=== PATIENT | female | born 1935 | race Caucasian/White ===

== ENCOUNTER 2017-02-28 23:37 | Inpatient (IN) | payer MEDICARE, MEDICAID ==
[2017-02-28] MEDS ORDERED: Albuterol-Ipratrop 3 mg / 0.5 (3 ml) UD ONE (23:45)
[2017-02-28] MEDS ORDERED: Nitroglycerin 2% Ointment Foilpak UD TOP ONE (23:49)
--- NOTE | 2017-02-28 23:50 | ED PDOC ---
Arrival/HPI - General Time Seen by Provider: 02/28/17 23:42 Historian: Patient, Family - History of Present Illness Narrative History of Present Illness (Text): 02/28/17 23:46 Feng Cormier is a 81 year old female, whose past medical history includes hypertension, non-insulin dependent diabetes, migraine and arthritis, presents to the emergency department complaining of shortness of breath for an hour. As per family, patient has been feeling shortness of breath since today worsening the past hour. Patient states associated mild anterior cardiac discomfort. Patient denies any abdominal pain, fever, nausea, vomiting, diarrhea, trauma or any other complaints. Time/Duration: 1 hour Symptom Onset: Sudden Symptom Course: Worsening Activities at Onset: Light Context: Home Past Medical History - Provider Review Nursing Documentation Reviewed: Yes - Cardiac Hx NE: Yes Hx Hypertension: Yes Family/Social History - Physician Review Nursing Documentation Reviewed: Yes Family/Social History: Unknown Family HX Allergies/Home Meds Allergies/Adverse Reactions: Allergies No Known Allergies Allergy (Verified 02/28/17 23:48) Home Medications: Home Meds Medication Instructions Recorded Confirmed Aspirin [Ecotrin] 81 mg PO DAILY 10/13/16 10/13/16 Bisoprolol Fumarate 10 mg PO DAILY 10/13/16 10/13/16 Clopidogrel [Plavix] 75 mg PO DAILY 10/13/16 10/13/16 Isosorbide Mononitrate [Isosorbide 30 mg PO DAILY 10/13/16 10/13/16 Mononitrate ER] Linagliptin [Tradjenta] 5 mg PO DAILY 10/13/16 10/13/16 Metformin HCl [Fortamet] 500 mg PO DAILY 10/13/16 10/13/16 Mv,Min10/Folic Acid/D3/Ala/Lut 1 tab PO DAILY 10/13/16 10/13/16 [Strovite One Caplet] Simvastatin 20 mg PO DAILY 10/13/16 10/13/16 Review of Systems - Physician Review All systems were reviewed & negative as marked: Yes - Review of Systems Constitutional: Normal. absent: Fevers Eyes: Normal ENT: Normal Respiratory: SOB Cardiovascular: Chest Pain (mild anterior chest discomfort ) Gastrointestinal: Normal. absent: Abdominal Pain, Diarrhea, Nausea, Vomiting Genitourinary Female: Normal Musculoskeletal: Normal Skin: Normal Neurological: Headache (PMHx: migraine ) Endocrine: Normal Hemo/Lymphatic: Normal Psychiatric: Normal Physical Exam Vital Signs Reviewed: Yes Vital Signs Temp Pulse Resp BP Pulse Ox 03/01/17 01:38 84 23 157/89 H 100 03/01/17 01:11 82 119/107 H 03/01/17 00:35 191/108 H 03/01/17 00:32 191/108 H 02/28/17 23:50 20 02/28/17 23:48 97.6 F 93 H 28 H 224/107 H 94 L Temperature: Afebrile Blood Pressure: Hypertensive Pulse: Tachycardic Respiratory Rate: Tachypneic Appearance: Positive for: Non-Toxic, Other (pale ) Pain Distress: None Mental Status: Positive for: Alert and Oriented X 3 - Systems Exam Head: Present: Atraumatic, Normocephalic Pupils: Present: PERRL Extroacular Muscles: Present: EOMI Conjunctiva: Present: Normal Mouth: Present: Moist Mucous Membranes Neck: Present: Normal Range of Motion, JVD Respiratory/Chest: Present: Respiratory Distress, Accessory Muscle Use, Rales ( at both bases ), Tachypneic Cardiovascular: Present: Regular Rate and Rhythm, Normal S1, S2. No: Murmurs Abdomen: Present: Normal Bowel Sounds. No: Tenderness, Distention, Peritoneal Signs Back: Present: Normal Inspection Upper Extremity: Present: Normal Inspection. No: Cyanosis Lower Extremity: Present: Normal Inspection, Edema (minimal peripheral edema ) Neurological: Present: GCS=15, CN II-XII Intact, Other (Speaking in short sentences secondary to shortness of breath) Skin: Present: Warm, Diaphoretic, Pale. No: Rashes, Normal Color Psychiatric: Present: Alert, Oriented x 3, Normal Insight, Normal Concentration Medical Decision Making ED Course and Treatment: 03/01/17 23:46 Impression: 81 year old female presents to the Emergency department for shortness of breath. Differential Diagnosis included but are not limited to: pulmonary edema Plan: -- BVG -- EKG -- Chest X-ray -- Labs -- Aspirin -- Lasix -- Nitroglycerin -- Reassess and disposition Progress Notes: 03/01/17 01:50 Upon reassessment, patient has improved significantly. Shortness of breath resolved. Patient appears to be comfortable. - Lab Interpretations Lab Results: 03/01/17 00:09 03/01/17 00:09 Lab Results 03/01/17 00:38: pCO2 44, pO2 287.0 H, HCO3 26.6, ABG pH 7.39, ABG Total CO2 28.0 , ABG O2 Saturation 99.1 H, ABG O2 Content 18.0, ABG Base Excess 1.3, ABG Hemoglobin 12.6, ABG Carboxyhemoglobin 1.1, POC ABG HHb (Measured) 0.9, ABG Methemoglobin 0.7, ABG O2 Capacity 18.2, Hgb O2 Saturation 97.4, FiO2 100.0 03/01/17 00:09: Sodium 130 L, Potassium 4.3, Chloride 91 L, Carbon Dioxide 25, Anion Gap 18, BUN 28 H, Creatinine 1.4 H, Est GFR ( Amer) 44, Est GFR ( Non-Af Amer) 36, Random Glucose 239 H, Calcium 9.3, Total Bilirubin 0.4, AST 54 H, ALT 48, Alkaline Phosphatase 51, Lactate Dehydrogenase 625, Total Creatine Kinase 72, Troponin I < 0.01, NT-Pro-B Natriuret Pep 1140 H, Total Protein 7.9, Albumin 4.6, Globulin 3.3, Albumin/Globulin Ratio 1.4 03/01/17 00:09: PT 10.3, INR 0.95, APTT 35.5 03/01/17 00:09: WBC 13.1 H, RBC 3.75, Hgb 12.0, Hct 35.2 L, MCV 93.9, MCH 32.0, MCHC 34.1, RDW 12.5, Plt Count 309, MPV 9.1, Gran % 88.1 H, Lymph % (Auto) 7.6 L , [place] % (Auto) 3.7, Eos % (Auto) 0.5 L, Baso % (Auto) 0.1, Gran # 11.56 H, Lymph # 1.0 L, [place] # 0.5, Eos # 0.1, Baso # 0.01 - RAD Interpretation Radiology Orders: 02/28/17 23:53 CHEST PORTABLE [RAD] Stat - Medication Orders Current Medication Orders: Aspirin (Ecotrin) 81 mg PO DAILY [facility] Atorvastatin Calcium (Lipitor) 10 mg PO DIN CAT Clopidogrel Bisulfate (Plavix) 75 mg PO DAILY [facility] Furosemide (Lasix) 40 mg IVP DAILY [facility] Hydralazine HCl (Apresoline) 10 mg IVP Q4 [facility] Insulin Human Regular (Humulin R Low) 0 units SC ACHS CAT PRN Reason: Protocol Isosorbide Mononitrate (Imdur Er) 30 mg PO DAILY [facility] Non-Formulary Medication (Bisoprolol Fumarate [Bisoprolol Fumarate]) 10 mg PO DAILY [facility] Discontinued Medications Aspirin (Ecotrin) 325 mg PO STAT STA Stop: 02/28/17 23:53 Last Admin: 03/01/17 00:39 Dose: 325 mg Furosemide (Lasix) 60 mg IVP STAT STA Stop: 02/28/17 23:53 Last Admin: 03/01/17 00:35 Dose: 60 mg MAR Blood Pressure Document 03/01/17 00:35 [facility] (Rec: 03/01/17 00:[id number]) Blood Pressure Blood Pressure (100/60-150/90) 191/108 IVP Administration Document 03/01/17 00:35 [facility] (Rec: 03/01/17 00:[id number]) Charges for Administration # of IVP Administrations 1 Labetalol HCl (Trandate) 10 mg IV STAT STA Stop: 03/01/17 00:34 Last Admin: 03/01/17 01:11 Dose: 10 mg eMAR Start Stop Document 03/01/17 01:11 [facility] (Rec: 03/01/17 01:[id number]) Intravenous Solution Start Date 03/01/17 Start Time 01:12 End Date 03/01/17 MAR Pulse and Blood Pressure Document 03/01/17 01:11 [facility] (Rec: 03/01/17 01:[id number]) Pulse Pulse Rate (60-90) 82 Blood Pressure Blood Pressure (100/60-150/90) 119/107 Nitroglycerin (Nitrostat Sl Tab) 0.4 mg SL STAT STA Stop: 02/28/17 23:53 Last Admin: 03/01/17 00:36 Dose: 0.4 mg Nitroglycerin (Nitro-Bid 2% Oint) 2 ea TOP STAT STA Stop: 02/28/17 23:55 Last Admin: 03/01/17 00:36 Dose: 2 ea - Scribe Statement The provider has reviewed the documentation as recorded by the Taniibe Essence Ortiz. All medical record entries made by the Taniibdave were at my direction and personally dictated by me. I have reviewed the chart and agree that the record accurately reflects my personal performance of the history, physical exam, medical decision making, and the department course for this patient. I have also personally directed, reviewed, and agree with the discharge instructions and disposition. Disposition/Present on Arrival - Present on Arrival Any Indicators Present on Arrival: No - Disposition Have Diagnosis and Disposition been Completed?: Yes Diagnosis: Pulmonary edema, Hypertension Disposition: HOSPITALIZED Disposition Time: 02:40 Patient Plan: Telemetry Condition: SERIOUS
[2017-02-28] MEDS ORDERED: Aspirin 325 mg EC Tablets PO STA (23:52)
[2017-02-28] MEDS ORDERED: Nitroglycerin 2% Ointment Foilpak UD TOP STA (23:54)
[2017-03-01 00:28] LABS: BASO # 0.01 K/mm3 (0.0-2.0); BASO % 0.1 % (0.0-3.0); EOS # 0.1 (0.0-0.7); EOS % 0.5 % (1.5-5.0); GRAN # 11.56 (1.4-6.5); GRAN % 88.1 % (50.0-68.0); LYMPH % 7.6 % (22.0-35.0); MEAN CELL VOLUME 93.9 fl (80.0-105.0); MEAN CORPUSCULAR HGB CONC 34.1 g/dl (31.0-37.0); MEAN PLATELET VOLUME 9.1 fl (7.0-11.0); MONO # 0.5 (0.1-0.6); MONO % 3.7 % (1.0-6.0); RBC 3.75 10^6/uL (3.5-6.1); RED CELL DISTRIBUTION WIDTH 12.5 % (11.5-14.5); WHITE BLOOD COUNT 13.1 10^3/ul (4.5-11.0)
[2017-03-01] MEDS ORDERED: Labetalol 5 mg/ml Inj 20ML IV STA (00:33)
[2017-03-01 00:43] LABS: ARTERIAL BLOOD GAS HCO3 26.6 mmol/L (21-28); ARTERIAL BLOOD GAS HEMOGLOBIN 12.6 g/dL (11.7-17.4); ARTERIAL BLOOD GAS O2 CAPACITY 18.2 mL/dl (16-24); ARTERIAL BLOOD GAS O2 SAT 99.1 % (95-98); ARTERIAL BLOOD GAS PCO2 44 mm/Hg (35-45); ARTERIAL BLOOD GAS PH 7.39 (7.35-7.45)
[2017-03-01 00:43] LABS: INR 0.95 (0.93-1.08); PROTHROMBIN TIME 10.3 SECONDS (9.4-12.5)
[2017-03-01 00:44] LABS: PARTIAL THROMBOPLASTIN TIME 35.5 Seconds (25.1-36.5)
[2017-03-01 00:49] LABS: ALB/GLOB RATIO 1.4 (1.1-1.8); ALBUMIN 4.6 g/dL (3.0-4.8); ALT/SGPT 48 U/L (7-56); AST/SGOT 54 U/L (14-36); BLOOD UREA NITROGEN 28 mg/dL (7-21); CALCIUM 9.3 mg/dL (8.4-10.5); GFR AFRICAN-AMERICAN 44; GFR NON-AFRICAN AMERICAN 36
[2017-03-01 00:50] LABS: B-TYPE NATRIURETIC PEPTIDE 1140 pg/mL (0-450); TROPONIN I < 0.01 ng/mL
--- NOTE | 2017-03-01 02:43 | CP.PCM.HP ---
<Samson Rodriguez - Last Filed: 03/01/17 05:10> History of Present Illness - History of Present Illness History of Present Illness: Mrs. Cormier is a 81 year old female with a past medical history significant for non-insulin dependent DM2, CAD s/p RCA stent placement in 07/13, HTN, HLD and CKD who presents with a chief complaint of progressive SOB and non-productive cough since approximately 16 hours [employer]. Patient speaks slovenian only and is accompanied by her son who provides translation. Patient reports that yesterday (02/28) around 1100, she was at her adult day care center when she began to experience a nonproductive cough and mild SOB while at rest. She reports that the SOB progressed throughout the course of the day with no alleviating or aggravating factors noted. She does endorse that several of her friends have had flu-like symptoms at her day care but denies any fever, chills, chest pain, palpitations, syncope, leg edema, sputum, wheezing, pleurisy, hemoptysis or any recent travel/trauma/hospitalizations. She also denies any headache, changes in her vision, dysphagia, abdominal pain, N/V, diarrhea, constipation, burning/ pain with urination, any new rashes, or any numbness/tingling/weakness of any extremity. PMH: As stated above PSH: RCA Stent placement (07/13) Family History: Denies any history of HTN, HLD, CAD, MT's or any cancers Social History: Endorses social alcohol use, denies any tobacco or illicit drug use, lives at home with her son, attends adult day care, speaks slovenian only Allergies: NKDA Home Medications: As per MAR Present on Admission - Present on Admission Any Indicators Present on Admission: No Review of Systems - Review of Systems Review of Systems: As per HPI Past Patient History - Infectious Disease Hx of Infectious Diseases: None - Tetanus Immunizations Tetanus Immunization: Unknown - Past Social History Smoking Status: Never Smoked - CARDIAC Hx Heart Attack: Yes Hx Hypertension: Yes - PSYCHIATRIC Hx Substance Use: No Meds Allergies/Adverse Reactions: Allergies Allergy/AdvReac Type Severity Reaction Status Date / Time No Known Allergies Allergy Verified 02/28/17 23:48 Physical Exam - Constitutional Appears: Non-toxic, No Acute Distress - Head Exam Head Exam: ATRAUMATIC, NORMAL INSPECTION, NORMOCEPHALIC - Eye Exam Eye Exam: EOMI, Normal appearance, PERRL Pupil Exam: NORMAL ACCOMODATION, PERRL - ENT Exam ENT Exam: Mucous Membranes Moist, Normal Exam - Neck Exam Neck exam: Positive for: Full Rom, Normal Inspection. Negative for: Lymphadenopathy, Meningismus, Tenderness, Thyromegaly - Respiratory Exam Respiratory Exam: Decreased Breath Sounds (Lung bases bilaterally), NORMAL BREATHING PATTERN. absent: Accessory Muscle Use, Chest Wall Tenderness, Clear to Auscultation Bilateral, Prolonged Expiratory Phase, Rales, Rhonchi, Wheezes, Respiratory Distress, Stridor - Cardiovascular Exam Cardiovascular Exam: REGULAR RHYTHM, RRR, +S1, +S2. absent: Bradycardia, Tachycardia, Clicks, Diastolic murmur, Gallop, Irregular Rhythm, JVD, Rubs, +S4 , Systolic Murmur - GI/Abdominal Exam GI & Abdominal Exam: Normal Bowel Sounds, Soft. absent: Bruit, Diminished Bowel Sounds, Distended, Firm, Guarding, Hernia, Hyperactive Bowel Sounds, Hypoactive Bowel Sounds, Mass, Organomegaly, Pulsatile Mass, Rebound, Rigid, Tenderness - Extremities Exam Extremities exam: Positive for: full ROM, normal capillary refill, normal inspection, pedal pulses present. Negative for: calf tenderness, joint swelling , pedal edema, tenderness - Back Exam Back exam: FULL ROM, NORMAL INSPECTION. absent: CVA tenderness (L), CVA tenderness (R), muscle spasm, paraspinal tenderness, rash noted, tenderness, vertebral tenderness - Neurological Exam Neurological exam: Alert, CN II-XII Intact, Oriented x3 - Psychiatric Exam Psychiatric exam: Normal Affect, Normal Mood - Skin Skin Exam: Dry, Intact, Normal Color, Warm Results - Vital Signs Recent Vital Signs: Last Vital Signs Temp 97.6 F 02/28/17 23:48 Pulse 84 03/01/17 01:38 Resp 23 03/01/17 01:38 BP 157/89 H 03/01/17 01:38 Pulse Ox 100 03/01/17 01:38 - Labs Result Diagrams: 03/01/17 00:09 03/01/17 00:09 Labs: Laboratory Results - last 24 hr 03/01/17 03/01/17 03/01/17 00:09 00:09 00:09 WBC 13.1 H RBC 3.75 Hgb 12.0 Hct 35.2 L MCV 93.9 MCH 32.0 MCHC 34.1 RDW 12.5 Plt Count 309 MPV 9.1 Gran % 88.1 H Lymph % (Auto) 7.6 L [place] % (Auto) 3.7 Eos % (Auto) 0.5 L Baso % (Auto) 0.1 Gran # 11.56 H Lymph # 1.0 L [place] # 0.5 Eos # 0.1 Baso # 0.01 PT 10.3 INR 0.95 APTT 35.5 pCO2 pO2 HCO3 ABG pH ABG Total CO2 ABG O2 Saturation ABG O2 Content ABG Base Excess ABG Hemoglobin ABG Carboxyhemoglobin POC ABG HHb (Measured) ABG Methemoglobin ABG O2 Capacity Hgb O2 Saturation FiO2 Sodium 130 L Potassium 4.3 Chloride 91 L Carbon Dioxide 25 Anion Gap 18 BUN 28 H Creatinine 1.4 H Est GFR ( Amer) 44 Est GFR (Non-Af Amer) 36 Random Glucose 239 H Calcium 9.3 Total Bilirubin 0.4 AST 54 H ALT 48 Alkaline Phosphatase 51 Lactate Dehydrogenase 625 Total Creatine Kinase 72 Troponin I < 0.01 NT-Pro-B Natriuret Pep 1140 H Total Protein 7.9 Albumin 4.6 Globulin 3.3 Albumin/Globulin Ratio 1.4 03/01/17 00:38 WBC RBC Hgb Hct MCV MCH MCHC RDW Plt Count MPV Gran % Lymph % (Auto) [place] % (Auto) Eos % (Auto) Baso % (Auto) Gran # Lymph # [place] # Eos # Baso # PT INR APTT pCO2 44 pO2 287.0 H HCO3 26.6 ABG pH 7.39 ABG Total CO2 28.0 ABG O2 Saturation 99.1 H ABG O2 Content 18.0 ABG Base Excess 1.3 ABG Hemoglobin 12.6 ABG Carboxyhemoglobin 1.1 POC ABG HHb (Measured) 0.9 ABG Methemoglobin 0.7 ABG O2 Capacity 18.2 Hgb O2 Saturation 97.4 FiO2 100.0 Sodium Potassium Chloride Carbon Dioxide Anion Gap BUN Creatinine Est GFR ( Amer) Est GFR (Non-Af Amer) Random Glucose Calcium Total Bilirubin AST ALT Alkaline Phosphatase Lactate Dehydrogenase Total Creatine Kinase Troponin I NT-Pro-B Natriuret Pep Total Protein Albumin Globulin Albumin/Globulin Ratio Assessment & Plan - Assessment and Plan (Free Text) Assessment: 81 year old female with a past medical history significant for non-insulin dependent DM2, CAD s/p RCA stent placement in 07/13, HTN, HLD and CKD who presents with a chief complaint of progressive SOB and non-productive cough since approximately 16 hours [employer]. Plan: 1. Dyspnea -Chest X-Ray showing findings consistent with pulmonary edema with radiologist interpretation pending -Echo and Nuclear Stress Test from 10/13 showed no abnormal findings with an LVEF of 67.9% -IV Lasix 40mg IVP Daily -Serial Cardiac Iso's Q6H -Daily CBC -Rapid Influenza -Blood/Urine Cultures pending -Strict I/O's -Echo pending -Cardiology Consult (Saad) 2. Hypertension -Hydralazine 10mg IVP Q4H PRN for SBP >180 -Continue home Bisoprolol 3. DM2 -SSI and Accuchecks ACHS -Heart Healthy Carbohydrate Consistent Diet 4. History of CAD s/p RCA stent -Continue home ASA, Nitro and Plavix 5. History of HLD -Continue home Lipitor 6. History of CKD -Son reporting patient has baseline creatinine of 1.8 and GFR of 39 -Daily CMP's to monitor GI Prophylaxis: Protonix DVT Prophylaxis: SCD's Patient seen and case discussed with attending, Dr. Marcelino. - Date & Time Date: 03/01/17 Time: 03:15 Decision To Admit - . Bed Request Type: Telemetry <Suraj Marcelino Q - Last Filed: 03/01/17 06:25> Results - Vital Signs Recent Vital Signs: Last Vital Signs Temp 97.6 F 02/28/17 23:48 Pulse 76 03/01/17 03:50 Resp 21 03/01/17 03:50 BP 146/71 03/01/17 03:50 Pulse Ox 99 03/01/17 03:50 - Labs Result Diagrams: 03/01/17 05:30 03/01/17 00:09 Attending/Attestation - Attestation I have personally seen and examined this patient.: Yes I have fully participated in the care of the patient.: Yes I have reviewed all pertinent clinical information: Yes Notes (Text): 03/01/17 06:20 I agree with the above mentioned note and exam with the addition/exception of the followin81 y/o female with a PMHx Htn, CAD s/p PCI to the RCA in 04/2016, Arthritis, ? Gout, DM2 presents to the ED with a 1 day history of shortness of breath accompanied by her son. Son reports that his mother has been having cold-like symptoms for a few days, however yesterday she experienced a bout of coughing that seemed to get worse without any significant improvement eventually causing the patient to become visibly short of breath so be brought her in to the ED. Patient was treated with diuretics in the ED as well as oxygen via nasal cannula with substantial improvement to her clinical condition. At the time of my examination, she did not complain of any respiratory distress and appeared comfortable. She did however offer complaints of intermittent left arm numbness and tingling as well as retrosternal chest tightness without alleviating or aggravating factors. Consideration will be given for ischemic heart disease, flash pulmonary edema secondary to hypertensive urgency as well as possible CHF that may have developed over the last 6 months since her echocardiogram at that time did not show any significant heart failure.
[2017-03-01 03:38] LABS: PH,URINE 6.5 (4.7-8.0); URINE BILIRUBIN NEGATIVE (NEGATIVE); URINE BLOOD TRACE-INTACT (NEGATIVE); URINE GLUCOSE (UA) NEGATIVE (NEGATIVE); URINE LEUKOCYTE ESTERASE NEGATIVE Leu/uL (NEGATIVE); URINE NITRATE NEGATIVE (NEGATIVE); URINE PROTEIN 100 mg/dL (<30 mg/dL); URINE UROBILINOGEN 0.2 E.U./dL (<1 E.U./dL)
[2017-03-01 03:54] LABS: URINE APPEARANCE CLEAR (CLEAR); URINE COLOR YELLOW (YELLOW)
[2017-03-01 03:59] LABS: URINE EPITHELIAL CELLS 0 - 2 /hpf (0-5); URINE RBC 0 - 2 /hpf (0-2); URINE WBC 0 - 2 /hpf (0-6)
[2017-03-01 06:04] LABS: BASO # 0.02 K/mm3 (0.0-2.0); BASO % 0.2 % (0.0-3.0); EOS % 0.1 % (1.5-5.0); GRAN # 8.67 (1.4-6.5); GRAN % 89.4 % (50.0-68.0); HEMOGLOBIN 12.2 g/dL (12.0-16.0); LYMPH # 0.6 (1.2-3.4); LYMPH % 6.3 % (22.0-35.0); MEAN CELL VOLUME 93.5 fl (80.0-105.0); MEAN CORPUSCULAR HEMOGLOBIN 31.7 pg (25.0-35.0); MEAN CORPUSCULAR HGB CONC 33.9 g/dl (31.0-37.0); MEAN PLATELET VOLUME 9.3 fl (7.0-11.0); MONO # 0.4 (0.1-0.6); RBC 3.85 10^6/uL (3.5-6.1); RED CELL DISTRIBUTION WIDTH 12.6 % (11.5-14.5); WHITE BLOOD COUNT 9.7 10^3/ul (4.5-11.0)
[2017-03-01 06:23] LABS: ALB/GLOB RATIO 1.7 (1.1-1.8); ALBUMIN 4.8 g/dL (3.0-4.8); CALCIUM 9.8 mg/dL (8.4-10.5)
[2017-03-01 06:34] LABS: TROPONIN I 0.09 ng/mL
[2017-03-01] MEDS: Pantoprazole 40 mg EC Tab PO SCH (07:06)
--- NOTE | 2017-03-01 07:27 | RAD ---
HISTORY: sob COMPARISON: No prior. FINDINGS: LUNGS: Linear atelectasis or fibrosis in the inferior right lung zone. No alveolitis bilaterally. PLEURA: No significant pleural effusion identified, no pneumothorax apparent. CARDIOVASCULAR: Cardiomegaly appears [id number] in severity with mild hilar vascular prominence and increased reticular changes the mid to inferior lung zones suspicious for CHF. Clinically correlate further. OSSEOUS STRUCTURES: No significant abnormalities. VISUALIZED UPPER ABDOMEN: Normal. OTHER FINDINGS: None. IMPRESSION: Findings suggest CHF. Clinically correlate further. No definite alveolitis or pleural effusion bilaterally.
[2017-03-01] MEDS ORDERED: HEPARIN SODIUM/NS 2,000 ML IV ONE (09:29)
[2017-03-01] MEDS ORDERED: Iohexol 350mgl/ml 50 ML ONE (09:29)
[2017-03-01] MEDS ORDERED: Iodixanol 320 MG/ML 200 ML BOTTLE IV ONE (09:29)
[2017-03-01] MEDS ORDERED: Lidocaine 2% Inj (20ml) ONE (09:29)
[2017-03-01 09:35] VITALS: BMI 29.3
[2017-03-01 09:47] LABS: HDL CHOLESTEROL 67 mg/dL (29-60)
[2017-03-01] MEDS ORDERED: Sodium Bicarbonate (8.4%) 50 Meq Syringe ONE (09:57)
[2017-03-01 09:58] LABS: LDL CHOLESTEROL 61 mg/dL (0-129)
[2017-03-01] MEDS ORDERED: BISOPROLOL FUMARATE 10 MG PO SCH (10:00)
[2017-03-01 10:11] LABS: FREE T4 1.12 ng/dL (0.78-2.19); T4 13.7 ug/dL (5.5-11.0)
[2017-03-01] MEDS ORDERED: Midazolam 2 MG/2 ML VIAL ONE ×2 (10:26)
[2017-03-01] MEDS ORDERED: Phenylephrine 10 mg/ml Inj ONE (10:40)
[2017-03-01] MEDS: Insulin Reg-LOW-Coverage SC SCH ×6 (12:52→21:41)
--- NOTE | 2017-03-01 15:09 | CARD ---
APPROVED REPORT EKG Measurement Heart [id number] <Conclusion> Sinus rhythm with 1st degree AV block with premature atrial complexes Otherwise normal ECG
[2017-03-01] MEDS ORDERED: Pneumococcal 23-Valent Vaccine IM ONE (16:10)
[2017-03-01] MEDS ORDERED: Influenza Vaccine 60 mcg/0.5 mL SYR (4YR UP) IM ONE (16:10)
[2017-03-01] MEDS ORDERED: Insulin Detemir 100 units/ml Vial (Levemir) SC SCH (16:30)
[2017-03-01] MEDS: Insulin Detemir 100 units/ml Vial (Levemir) SC SCH (20:04)
--- NOTE | 2017-03-01 22:38 | CARDCATH ---
EMERGENCY CARDIAC CATHETERIZATION AND PTCA HISTORY: The patient is a 81-year-old woman who presented with acute CHF as well as chest pain. The patient's past medical history is notable for diabetes mellitus, hypertension and hypercholesterolemia. She is also status post PTCA earlier this year and was found to have multivessel disease in [place]. Because of this, a cardiac catheterization was recommended. Emergency cardiac cath and PTCA. The right femoral artery was cannulated with a 6-Romansh sheath. There were no complications. I performed moderate sedation which included the presence of an independent trained observer that assisted in monitoring the patient's level of consciousness and physiologic status. After administration of Versed and fentanyl, my intra service time was 30 minutes. The right femoral artery was cannulated with 6-Romansh sheath. There were no complications. Findings on catheterization revealed an LVEDP of 20 mmHg. Left ventricular function is normal with an ejection fraction of 65% to 70%. Her coronary anatomy revealed a right dominant circulation. The RCA revealed a patent stent in the midportion. There were diffuse intimal irregularities throughout its course. The left main artery was unremarkable. The LAD and diagonal vessels revealed diffuse atherosclerosis with an 80% to 90% stenosis in the midportion of the LAD after the takeoff of the diagonal vessel. The circumflex artery and obtuse marginal branches were free of significant disease. Supra-aortic valvular injection revealed no aortic insufficiency. The patient was started on intravenous Angiomax. Under fluoroscopic guide, the guiding catheter was placed in the ostium of the left main artery. An 0.014 ATW wire was used to cross the critical lesion. A 2.0 balloon was utilized to pre-dilate the mid LAD lesion. A 2.75 x 14 mm drug-eluting stent was placed and deployed in the mid LAD at 10 atmospheres of pressure. Repeat coronary arteriography revealed an excellent result with no residual stenosis and KENY III flow. The patient tolerated the procedure well. Manual compression will be used to close the femoral artery site. In summary, the procedure was an emergency PTCA of a 90% mid LAD stenoses with a drug-eluting stent. Cardiac catheterization revealed an LVEDP of 20 mmHg. Normal LV function with an EF of 65% to 70%. A patent stent in the RCA as well as the 90% stenosis noted. Given these findings, the patient will need to remain on aspirin indefinitely and Plavix for least an year and undergo a strict cardiac risk reduction program. Jaylon Nash MD
--- NOTE | 2017-03-01 23:00 | PN ---
DATE: SUBJECTIVE: The patient has been transferred to my service from the hospitalist service this morning. The patient was seen in room 273, bed 3 with the patient's son at bedside. The patient has just return from undergoing cardiac catheterization and angioplasty of the left anterior descending artery. The patient had a left anterior descending artery mid stenosis. The patient had an angioplasty done stent placement. The patient is seen lying in the bed with the patient's son at bedside. OBJECTIVE: VITAL SIGNS: T-max 98.7; telemetry shows sinus rhythm, heart rate 74, 82, 77, 85; blood pressure 169/68, 181/83; respiration 20, O2 sat is 98% to 96%. The patient's blood pressure is fluctuating to peak systolic blood pressure of 200s at the initial arrival. Diastolic blood pressure has been in 80s and low 100s. HEENT: Head normocephalic and atraumatic. Shows pink conjunctivae. Anicteric sclerae. No oropharyngeal lesion. NECK: No neck rigidity. CHEST: Kyphosis. LUNGS: Shows no rales, crackles, or wheezing. Occasional rhonchi noted. CARDIOVASCULAR: S1, S2, regular rhythm. Questionable soft systolic murmur, left sternal border, right second intercostal space, left second intercostal space. ABDOMEN: Soft, slightly protuberant, and obese. No hepatosplenomegaly noted. No guarding. No rigidity. No rebound tenderness. GENITALIA: Female. RECTAL: Deferred. Positive right groin dressing noted. EXTREMITIES: Shows no pitting edema, no calf tenderness, no Darrian's signs. No clubbing, no cyanosis. VASCULAR: Palpable pulses. MUSCULOSKELETAL: Shows a body mass index of 29.4. NEUROLOGIC: The patient is alert, awake, responsive. Gait examination is not tested. Cranial nerves II-XII limited. DIAGNOSTICS: WBC 13.1 and 9.7, hemoglobin/hematocrit 12.0/35.2 and 12.2/36.0, platelets 309,000 and 276,000, granulocytes 88.1 and 89.4. PT/PTT was normal. CMP was reviewed. Sodium is 130 and 131; BUN and creatinine 28 and 1.4 and 30 and 1.5; GFR 36 and 33. Random glucose 239 and 253, hemoglobin A1c 6.9. AST is 54 and 44. Peak troponin is 0.09 to 0.10. BNP 1140, cholesterol 158, LDL 61, HDL 67. TSH is normal at 1.43, T4 is slightly elevated at 13.7. Urine protein 100, trace blood, influenza A and B negative. Chest x-ray was reviewed. IMPRESSION AND PLAN: 1. Questionable acute pulmonary edema with congestive heart failure with elevated BNP. 2. History of multivessel coronary artery disease. 3. Possible non-ST elevation myocardial infarction with elevated troponin. 4. Uncontrolled accelerated hypertension. 5. Transient hypoxemia. 6. Obesity with elevated body mass index. 7. History of angioplasty and stent placement of the right coronary artery in [place]. 8. Leukocytosis with granulocytosis. 9. Hyponatremia. 10. Acute kidney injury with underlying chronic kidney disease stage III. 11. Hyperglycemia. 12. Type 2 diabetes mellitus with hemoglobin A1c of 6.9. 13. Transaminitis. 14. Elevated thyroxine level, etiology undetermined. 15. Possible non-ST elevation myocardial infarction with elevated troponin. 16. Proteinuria. 17. Microscopic hematuria. 18. Cardiomegaly. 19. Pulmonary vascular congestion and congestive heart failure. 20. Obesity. 21. History of non-insulin requiring diabetes mellitus, history of multivessel coronary artery disease and triple-vessel coronary artery disease, history of angioplasty and stent placement of the right coronary artery, history of dyslipidemia, history of hypertension, history of hypertension. 22. History of angina. 23. History of dyslipidemia. PLAN: At this time, the patient is admitted to telemetry post cardiac catheterization and angioplasty. The patient will be placed on telemetry. Cardiology consultation with Dr. Nash has been requested. The patient's case is referred for TCU. The patient has been ordered repeat labs. CURRENT MEDICATIONS: Hydralazine 10 mg IV q. 4 h. p.r.n. The patient is on aspirin 81 daily, Humulin low-dose sliding scale coverage, Imdur 60 mg daily, the patient is on Lasix 40 IV daily, Levemir 10 units breakfast and dinner, Lipitor 10 mg daily, Lopressor 25 mg twice a day, Plavix 75 mg daily, Protonix 40 mg daily. The patient has been ordered repeat chest x-ray PA lateral renal ultrasound ordered. Echo with Doppler ordered. Consistent carbohydrate diet ordered. The patient has been ordered SCDs and SHANITA stockings. Repeat lab work will be ordered for the morning. The patient will be continued to be monitored on telemetry with close cardiology followup. The patient's condition, diagnosis, treatment plan, management plan explained to the patient and the patient's son at length and all questions concerned answered. The patient at present is seen in room 273, bed 3. The patient is presently lying in the bed. Dictated and electronically signed, not read. Francesco Richards MD
[2017-03-02] MEDS: Pantoprazole 40 mg EC Tab PO SCH ×2 (05:04→10:01)
[2017-03-02 05:19] LABS: BASO # 0.01 K/mm3 (0.0-2.0); BASO % 0.2 % (0.0-3.0); GRAN # 5.4 (1.4-6.5); GRAN % 81.1 % (50.0-68.0); HEMOGLOBIN 12.3 g/dL (12.0-16.0); LYMPH # 0.6 (1.2-3.4); LYMPH % 8.9 % (22.0-35.0); MEAN CELL VOLUME 94.4 fl (80.0-105.0); MEAN CORPUSCULAR HEMOGLOBIN 31.3 pg (25.0-35.0); MEAN CORPUSCULAR HGB CONC 33.2 g/dl (31.0-37.0); MEAN PLATELET VOLUME 8.7 fl (7.0-11.0); MONO # 0.7 (0.1-0.6); MONO % 9.8 % (1.0-6.0); RBC 3.93 10^6/uL (3.5-6.1); RED CELL DISTRIBUTION WIDTH 12.7 % (11.5-14.5); WHITE BLOOD COUNT 6.7 10^3/ul (4.5-11.0)
[2017-03-02 05:55] LABS: TROPONIN I 0.09 ng/mL
[2017-03-02 06:10] LABS: ALB/GLOB RATIO 1.3 (1.1-1.8); ALBUMIN 4.4 g/dL (3.0-4.8); BILIRUBIN,DIRECT 0.5 mg/dL (0.0-0.4); CALCIUM 9.3 mg/dL (8.4-10.5); MAGNESIUM 1.5 mg/dL (1.7-2.2)
[2017-03-02] MEDS ORDERED: Potassium Chloride 40 mEq/30 ml LIQ UD PO ONE (07:36)
[2017-03-02] MEDS: Insulin Reg-LOW-Coverage SC SCH ×5 (07:44→22:37)
[2017-03-02] MEDS: Insulin Detemir 100 units/ml Vial (Levemir) SC SCH ×3 (07:45→17:36)
[2017-03-02] MEDS: Magnesium Sulfate 2 GM in Sodium Chloride 0.9% 100 ML IVPB SCH ×2 (08:02→10:00)
[2017-03-02 09:18] LABS: CK-MB 2.8 ng/mL (0.0-3.6)
[2017-03-02 10:05] LABS: FRUCTOSAMINE 274 umol/L (190-270)
--- NOTE | 2017-03-02 11:07 | RAD ---
HISTORY: CHF COMPARISON: 03/01/2017 TECHNIQUE: Chest PA and lateral FINDINGS: LUNGS: No active pulmonary disease. PLEURA: No significant pleural effusion identified. No pneumothorax apparent. CARDIOVASCULAR: Mild cardiomegaly. Improved CHF OSSEOUS STRUCTURES: No significant abnormalities. VISUALIZED UPPER ABDOMEN: Normal. OTHER FINDINGS: None. IMPRESSION: Improved CHF
--- NOTE | 2017-03-02 11:10 | US ---
PROCEDURE: Ultrasound of the Kidneys HISTORY: elevated BUN/CR COMPARISON: None available. TECHNIQUE: Sonogram of the kidneys. FINDINGS: RIGHT KIDNEY: Measures: 17.8 x 7.3 x 5.8 cm. Normal in size, contour and echogenicity. No stone, solid mass lesion or hydronephrosis visualized. There is a large 10 cm cyst in the lower pole of the right kidney. There is a smaller 1.5 cm cyst in the upper pole peripherally LEFT KIDNEY: Measures: 11.6 x 5.3 x 5.0 cm. Normal in size, contour and echogenicity. No stone, solid mass lesion or hydronephrosis visualized. OTHER FINDINGS: None. IMPRESSION: Large 10 cm simple cyst in the lower pole of the right kidney. No evidence of hydronephrosis
[2017-03-02] MEDS: Levalbuterol 0.63 MG/3 ML Inhal Soln UD IH SCH ×3 (12:00→21:32)
--- NOTE | 2017-03-02 14:26 | CP.PCM.PN ---
Subjective - Date & Time of Evaluation Date of Evaluation: 03/02/17 Time of Evaluation: 14:22 - Subjective Subjective: Viktoria Erickson, PGY1, Medicine Progress Note for Dr Richards: Patient seen and examined at bedside. No acute events overnight. Pt states that she is doing well. Has mild SOB, which is relieved with 2L NC. Denies cp, n/v/ abd pain, diaphoresis, palpitations, fevers, chills, urinary symptoms. Objective - Vital Signs/Intake and Output Vital Signs (last 24 hours): Temp Pulse Resp BP Pulse Ox 100.5 F H 74 22 125/67 99 03/02/17 12:00 03/02/17 14:00 03/02/17 12:00 03/02/17 12:00 03/02/17 06:00 Intake and Output: 03/02/17 03/02/17 06:59 18:59 Intake Total 560 Output Total 1350 Balance -790 - Medications Medications: Current Medications Aspirin (Ecotrin) 81 mg PO DAILY [facility] Last Admin: 03/02/17 09:57 Dose: 81 mg Atorvastatin Calcium (Lipitor) 10 mg PO DIN [facility] Clopidogrel Bisulfate (Plavix) 75 mg PO DAILY [facility] Last Admin: 03/02/17 10:00 Dose: 75 mg Hydralazine HCl (Apresoline) 10 mg IVP Q4 PRN PRN Reason: Systolic Blood Pressure Insulin Detemir (Levemir) 10 unit SC ACBD [facility] Last Admin: 03/02/17 09:59 Dose: Not Given Insulin Human Regular (Humulin R Low) 0 units SC ACHS [facility] PRN Reason: Protocol Last Admin: 03/02/17 11:30 Dose: 4 units Isosorbide Mononitrate (Imdur) 60 mg PO DAILY [facility] Last Admin: 03/02/17 09:58 Dose: 60 mg Levalbuterol HCl (Xopenex) 0.63 mg IH [id number] [facility] Last Admin: 03/02/17 13:50 Dose: 0.63 mg Metoprolol Tartrate (Lopressor) 25 mg PO BID [facility] Last Admin: 03/02/17 09:59 Dose: 25 mg Pantoprazole Sodium (Protonix Ec Tab) 40 mg PO 0600 [facility] Last Admin: 03/02/17 10:01 Dose: Not Given - Labs Labs: 03/02/17 05:00 03/02/17 05:00 PT 10.3 SECONDS (9.4-12.5) 03/01/17 00:09 INR 0.95 (0.93-1.08) 03/01/17 00:09 APTT 35.5 Seconds (25.1-36.5) 03/01/17 00:09 - Additional Findings Additional findings: - Constitutional Appears: Non-toxic, No Acute Distress - Head Exam Head Exam: ATRAUMATIC, NORMAL INSPECTION, NORMOCEPHALIC - Eye Exam Eye Exam: EOMI, Normal appearance, PERRL Pupil Exam: NORMAL ACCOMODATION, PERRL - ENT Exam ENT Exam: Mucous Membranes Moist, Normal Exam - Neck Exam Neck exam: Positive for: Full Rom, Normal Inspection. Negative for: Lymphadenopathy, Meningismus, Tenderness, Thyromegaly - Respiratory Exam Respiratory Exam: CTA b/l, NORMAL BREATHING PATTERN. absent: Accessory Muscle Use, Chest Wall Tenderness, Prolonged Expiratory Phase, Rales, Rhonchi, Wheezes , Respiratory Distress, Stridor - Cardiovascular Exam Cardiovascular Exam: REGULAR RHYTHM, RRR, +S1, +S2. absent: Bradycardia, Tachycardia, Clicks, Diastolic murmur, Gallop, Irregular Rhythm, JVD, Rubs, +S4 , Systolic Murmur - GI/Abdominal Exam GI & Abdominal Exam: Normal Bowel Sounds, Soft. absent: Bruit, Diminished Bowel Sounds, Distended, Firm, Guarding, Hernia, Hyperactive Bowel Sounds, Hypoactive Bowel Sounds, Mass, Organomegaly, Pulsatile Mass, Rebound, Rigid, Tenderness - Extremities Exam Extremities exam: Positive for: full ROM, normal capillary refill, 1+ trace pedal edema b/l, pedal pulses present. Negative for: calf tenderness, joint swelling, tenderness - Back Exam Back exam: FULL ROM, NORMAL INSPECTION. absent: CVA tenderness (L), CVA tenderness (R), muscle spasm, paraspinal tenderness, rash noted, tenderness, vertebral tenderness - Neurological Exam Neurological exam: Alert, CN II-XII Intact, Oriented x3 - Psychiatric Exam Psychiatric exam: Normal Affect, Normal Mood - Skin Skin Exam: Dry, Intact, Normal Color, Warm Assessment and Plan - Assessment and Plan (Free Text) Assessment: 81 year old female with a past medical history significant for non-insulin dependent DM2, CAD s/p RCA stent placement in 07/13, HTN, HLD and CKD who presents with a chief complaint of progressive SOB, substernal chest pressure, and non-productive cough x 16 hours [employer], found to have uptrending trops and 90% mid LAD stenosis on cardiac cath with Dr Nash on 03/01, s/p LAD stent, POD#1 Substernal chest pressure: 2/2 likely ACS vs GERD - Indetreminate trops <0.01->0.09->0.10. - EKG showed no acute ST changes - Cardiology on board, appreciate recs. - Cardiac cath 03/01/16 showed EF 65-70%. 90% mid LAD stenosis, 1 drug eluting stent put in. - Echo 09/2016: showed EF 69%. LVH. - On ASA, lipitor 10, plavix 75, lasix 40, BB. - CXR today shows improved CHF - Tele monitor ANTOINETTE: - likely contrast induced - BUN/Cr 44/1.8 - Pt has a history of CKD. Son reports patient has baseline creatinine of 1.8 and GFR of 39 - renal US showed large 10 cm simple cyst on lower pole of right kidney. no hydronephrosis. - will cont hydration. encouraged PO intake. Hypertension -Hydralazine 10mg IVP Q4H PRN for SBP >180 -Continue metoprolol DM2 -SSI and Accuchecks ACHS -Heart Healthy Carbohydrate Consistent Diet History of CAD s/p RCA stent -Continue home ASA, Nitro and Plavix History of HLD -Continue home Lipitor GI Prophylaxis: Protonix DVT Prophylaxis: SCD's Case discussed with attending, Dr. Richards. Viktoria Erickson, PGY1
--- NOTE | 2017-03-02 16:31 | PN ---
DATE: 03/02/2017 SUBJECTIVE: The patient is seen in the holding area of the ultrasound. The patient is seen lying in the bed. The patient's [id number] is at bedside. The patient is awake, responsive. The patient does not appear to be in any distress. The patient developed some shortness of breath and some agitation. The patient was found to have bilateral rhonchi. The patient was given Lasix by electromedical equipment technician. The patient also required Benadryl overnight. At present, the patient does not appear to be in any respiratory distress. PHYSICAL EXAMINATION: VITAL SIGNS: T-max 99.3, telemetry shows sinus rhythm, heart rate 81, blood pressure 149/57, 153/96, 191/80, 152/73, respirations 20, O2 sat 99% on 2 L and 3 L nasal cannula. Intake and output: intake 560, output 1350. HEENT: Head examination: Normocephalic, atraumatic. HEENT examination shows pink conjunctivae. Anicteric sclerae. No visible jugular venous distention. No audible carotid bruit. CHEST: Kyphosis. LUNGS: Shows occasional rhonchi bilaterally. Questionable fine crepitus noted. CARDIOVASCULAR: S1, S2, regular rhythm. Questionable soft systolic murmur, sternal border, right second intercostal space, left second intercostal space, left sternal border. ABDOMEN: Soft, protuberant. Positive bowel sound. No hepatosplenomegaly noted. No costovertebral angle tenderness. GENITALIA: Female. RECTAL: Deferred. EXTREMITIES: Shows trace swelling of the lower extremity. No calf tenderness. No Darrian's signs. No clubbing, no cyanosis. NEUROLOGIC: The patient is alert, awake, oriented x3. Cranial nerves II through XII limited. Gait examination could not be tested. VASCULAR: Palpable pulses. PSYCHIATRIC: Negative. MUSCULOSKELETAL: Shows a body mass index of 29. DIAGNOSTICS: 03/02/2017, WBC 6.7, hemoglobin and hematocrit 12.3 and 37.1, platelet 246, granulocytes 81% segs. Sodium 135, potassium 3.4, chloride 84, CO2 of 38, anion gap 17, BUN 44, creatinine 1.8, GFR 33. Fingerstick blood sugar 150, 165, 196, 323, 218, fructosamine 274, hemoglobin A1c was 6.9, magnesium 1.5, AST 49, CPK 419. Troponin down to 0.09 from 0.10.. Blood cultures no growth. The patient was ordered a renal ultrasound. The patient was ordered a chest x-ray. Renal ultrasound which shows a right large 10 cm simple cyst on the right side. Chest x-ray was done, which shows cardiomegaly with improving CHF on the chest x-ray from today as compared to the chest x-ray from yesterday. IMPRESSION: 1. Possible diastolic congestive heart failure. 2. Acute non-ST elevation myocardial infarction. 3. Multivessel coronary artery disease. 4. Status post emergency cardiac catheterization and angioplasty and stent placement. 5. Left ventricular ejection fraction of 65%-70%. 6. Patent stent of the mid right coronary artery. 7. An 80%-90% stenosis of the midportion of the left anterior descending with diffuse atherosclerosis after the takeoff of the diagonal vessel. 8. Status post emergency angioplasty of the 90% mid left anterior descending stenosis with a drug-eluting stent. 9. Patent stent in the right coronary artery. 10. Questionable uncontrolled accelerated hypertension, resolving. 11. Leukocytosis with granulocytosis. 12. Hypokalemia. 13. Acute kidney injury with underlying chronic kidney disease stage 3. 14. Hyperglycemia. 15. Hypomagnesemia. 16. Hyponatremia. 17. Cfw-poiibwq-tfybvinte diabetes mellitus with hemoglobin A1c of 6.9. 18. Elevated thyroxine level, etiology undetermined at present. 19. Mild transaminitis. 20. Hyperglycemia. 21. Proteinuria. 22. Microscopic hematuria. 23. Basilar atelectasis. 24. Cardiomegaly. 25. Pulmonary vascular congestion and possible diastolic congestive heart failure. 26. Resolving and improving congestive heart failure. 27. Large right renal simple 10 cm renal cyst. 28. Improving congestive heart failure. 29. Multivessel coronary artery disease. 30. History of hypertension and hypercholesteremia. PLAN: At this time, patient has been ordered repeat lab work. The patient is evaluated by Cardiology, Dr. Nash, recommend observing the patient for at least another 24 hours. The patient's current medications are hydralazine 10 mg IV q.4h. p.r.n., Ecotrin 81 mg daily, Humulin low-dose sliding scale coverage a.c. and at bedtime, Imdur 60 mg daily, patient was given Lasix 40 IV last night, patient is on Levemir 10 units breakfast and dinner, Lipitor 10 mg daily, Lopressor 25 mg twice a day, Plavix 75 mg daily, patient was supplemented with magnesium and potassium today. The patient is on Xopenex nebulizer 0.63 mg q.6 hours. The patient was given magnesium sulfate riders x2. The patient has been ordered an echo with Doppler. The patient is on consistent carbohydrate diet, out of bed, SHANITA stockings, SCDs, physical therapy, occupational therapy, out of bed ordered. At present, the patient's further management will be dependent upon the patient's clinical condition, hemodynamic status and as per patient response to therapeutic intervention, as per patient's diagnostic test results and as per recommendation by all the physicians involved in the care of the patient. The patient's condition, diagnoses, need for further hospitalization, need for further management, need for further treatment discussed and explained to the patient and the patient's [id number] and all questions concerned answered. Dictated and electronically signed, not read. Francesco Richards MD
[2017-03-03] MEDS: Levalbuterol 0.63 MG/3 ML Inhal Soln UD IH SCH ×4 (01:27→20:47)
[2017-03-03] MEDS: Pantoprazole 40 mg EC Tab PO SCH (05:35)
[2017-03-03 06:33] LABS: ALB/GLOB RATIO 1.3 (1.1-1.8); BILIRUBIN,DIRECT 0.3 mg/dL (0.0-0.4); MAGNESIUM 2.8 mg/dL (1.7-2.2)
[2017-03-03] MEDS: Insulin Reg-LOW-Coverage SC SCH ×4 (08:22→21:33)
[2017-03-03] MEDS: Insulin Detemir 100 units/ml Vial (Levemir) SC SCH ×2 (08:22→17:24)
--- NOTE | 2017-03-03 08:56 | PN ---
DATE: 03/02/2017 CARDIOLOGY FOLLOWUP SUBJECTIVE: The patient's breathing is much better. The patient required IV Lasix yesterday after dyspnea. PHYSICAL EXAMINATION: VITAL SIGNS: Blood pressure is 149/57, heart rate in the 80s. NECK: Negative JVD. LUNGS: Bilateral rhonchi. HEART: Reveals S1, S2. EXTREMITIES: Without edema. The right groin site is stable. LABORATORY DATA: Hemoglobin is 12.3. Chemistry: BUN and creatinine; creatinine is up to 1.8 from 1.5 preprocedure, the BUN has gone from 30 to 44. IMPRESSION: 1. Status post non-ST elevation myocardial infarction. 2. Successful percutaneous transluminal coronary angioplasty and stent of a critical lesion in the left anterior descending artery. 3. Diabetes mellitus. 4. Elevated BUN and creatinine, which may be prerenal versus nephrotoxicity. PLAN: Given these findings, we will need to observe the patient for an additional 24 hours. X-ray has been ordered. We will follow up creatinine. We will obtain an ultrasound of the kidneys. Jaylon Nash MD
--- NOTE | 2017-03-03 10:24 | CP.PCM.PN ---
Subjective - Date & Time of Evaluation Date of Evaluation: 03/03/17 Time of Evaluation: 09:10 - Subjective Subjective: Medicine Progress Note for Dr Richards: Patient seen and examined at bedside. No acute events overnight. Pt states that she is doing well. Recommended to sit for bed to chair today. Denies cp, n/v/ abd pain, palpitations, fevers, chills, urinary symptoms. Objective - Vital Signs/Intake and Output Vital Signs (last 24 hours): Temp Pulse Resp BP Pulse Ox 98.6 F 88 20 116/60 97 03/03/17 06:00 03/03/17 09:23 03/03/17 06:00 03/03/17 09:23 03/03/17 06:00 Intake and Output: 03/03/17 03/03/17 06:59 18:59 Intake Total 120 Balance 120 - Medications Medications: Current Medications Acetaminophen (Tylenol 325mg Tab) 650 mg PO Q6H PRN PRN Reason: TEMP>=99.5F Aspirin (Ecotrin) 81 mg PO DAILY [facility] Last Admin: 03/03/17 09:23 Dose: 81 mg Atorvastatin Calcium (Lipitor) 10 mg PO DIN [facility] Last Admin: 03/02/17 17:36 Dose: 10 mg Clopidogrel Bisulfate (Plavix) 75 mg PO DAILY [facility] Last Admin: 03/03/17 09:24 Dose: 75 mg Hydralazine HCl (Apresoline) 10 mg IVP Q4 PRN PRN Reason: Systolic Blood Pressure Sodium Chloride (Sodium Chloride 0.9%) 1,000 mls @ 60 mls/hr IV .[id number] [facility] Insulin Detemir (Levemir) 10 unit SC ACBD [facility] Last Admin: 03/03/17 08:22 Dose: Not Given Insulin Human Regular (Humulin R Low) 0 units SC ACHS [facility] PRN Reason: Protocol Last Admin: 03/03/17 08:22 Dose: Not Given Isosorbide Mononitrate (Imdur) 60 mg PO DAILY [facility] Last Admin: 03/03/17 09:24 Dose: 60 mg Levalbuterol HCl (Xopenex) 0.63 mg IH [id number] [facility] Last Admin: 03/03/17 07:59 Dose: 0.63 mg Metoprolol Tartrate (Lopressor) 25 mg PO BID [facility] Last Admin: 03/03/17 09:23 Dose: 25 mg Pantoprazole Sodium (Protonix Ec Tab) 40 mg PO 0600 [facility] Last Admin: 03/03/17 05:35 Dose: 40 mg - Labs Labs: 03/02/17 05:00 03/03/17 05:30 PT 10.3 SECONDS (9.4-12.5) 03/01/17 00:09 INR 0.95 (0.93-1.08) 03/01/17 00:09 APTT 35.5 Seconds (25.1-36.5) 03/01/17 00:09 - Constitutional Appears: No Acute Distress - Head Exam Head Exam: ATRAUMATIC, NORMOCEPHALIC - Eye Exam Eye Exam: EOMI Pupil Exam: NORMAL ACCOMODATION - ENT Exam ENT Exam: Mucous Membranes Moist - Respiratory Exam Respiratory Exam: absent: Rales, Wheezes - Cardiovascular Exam Cardiovascular Exam: REGULAR RHYTHM, +S1, +S2 - GI/Abdominal Exam GI & Abdominal Exam: Soft. absent: Tenderness - Extremities Exam Extremities Exam: absent: Calf Tenderness, Pedal Edema - Neurological Exam Neurological Exam: Alert, Awake, Oriented x3 - Psychiatric Exam Psychiatric exam: Normal Affect, Normal Mood - Skin Skin Exam: Dry, Intact, Warm Assessment and Plan - Assessment and Plan (Free Text) Assessment: 81 year old female with a past medical history significant for non-insulin dependent DM2, CAD s/p RCA stent placement in 07/13, HTN, HLD and CKD who presents with a chief complaint of progressive SOB, substernal chest pressure, and non-productive cough found to have NSTEMI s/p LAD CORNELIO stent, POD#2. Course complicated by contrast induced nephropathy. 1. NSTEMI - Indetreminate trops <0.01->0.09->0.10. - EKG showed no acute ST changes - Cardiology on board, appreciate recs. - Cardiac cath 03/01/16 showed EF 65-70%. 90% mid LAD stenosis, 1 drug eluting stent put in. - Echo 09/2016: showed EF 69%. LVH. - On ASA, lipitor 10, plavix 75, lasix 40, BB. - CXR today shows improved CHF - Tele monitor 2. ANTOINETTE: likely contrast induced nephropathy - BUN/Cr 44/1.8--> 78/2.6 - Nephrology consulted for recs - Pt has a history of CKD. Son reports patient has baseline creatinine of 1.8 and GFR of 39 - renal US showed large 10 cm simple cyst on lower pole of right kidney. no hydronephrosis. 3. Hypertension -Hydralazine 10mg IVP Q4H PRN for SBP >180 -Continue metoprolol 4. DM2 -SSI and Accuchecks ACHS -Heart Healthy Carbohydrate Consistent Diet 5. History of CAD s/p RCA stent -Continue home ASA, Nitro and Plavix 6. History of HLD -Continue home Lipitor 7. GI Prophylaxis: Protonix DVT Prophylaxis: SCD's Case and plan was reviewed and discussed in detail with Dr Richards.
[2017-03-03] MEDS: Sodium Chloride 0.9% 1,000 ML IV SCH (11:49)
--- NOTE | 2017-03-03 14:10 | PN ---
DATE: 03/03/2017 CARDIOLOGY FOLLOWUP SUBJECTIVE: The patient is complaining of weakness. No shortness of breath. PHYSICAL EXAMINATION: VITAL SINGS: Blood pressure 116/70, heart rate in the 80s. NECK: Negative JVD. LUNGS: Decreased breath sounds without rales. HEART: Reveals S1, S2. EXTREMITIES: Without edema. LABORATORY DATA: Hemoglobin is 12.3, BUN and creatinine is 78 and 2.6. The glucose is 168. IMPRESSION: 1. Progressive renal insufficiency. 2. Need to rule out contrast nephropathy 3. Status post non-ST elevation myocardial infarction. 4. Status post successful percutaneous transluminal coronary angioplasty and stent of a critically stenosed left anterior descending. 5. Diabetes mellitus. PLAN: Given these findings, the patient cannot be discharged until her renal function is stabilized. Nephrology has been called to help with her renal issues. Jaylon Nash MD
--- NOTE | 2017-03-03 14:17 | PN ---
DATE: 03/03/2017 SUBJECTIVE: The patient is seen in room 273, bed 3. The patient is lying in the bed. According to the patient's daughter, the patient is feeling tired and weak. The patient was seen lying in the bed. The patient's overnight nurse's notes were reviewed. PHYSICAL EXAMINATION: VITAL SIGNS: T-max 98.6, 98.3. Telemetry shows heart rate 77, 86, 88, 74. Blood pressure 116/60, blood pressure 101/47 yesterday, 149/57. O2 sat 97-100%. HEAD: Normocephalic, atraumatic. HEENT: Shows pink conjunctivae. Anicteric sclerae. No oropharyngeal lesion. NECK: No neck rigidity. No visible jugular venous distention. No audible carotid bruit. CHEST: Kyphosis. LUNGS: Positive rhonchi bilaterally. CARDIOVASCULAR: S1, S2, regular rhythm. Questionable soft systolic murmur in left sternal border, right second intercostal space, left sternal border. ABDOMEN: Soft, protuberant. Positive bowel sounds. GENITALIA: Female. RECTAL: Deferred. EXTREMITIES: Shows no pitting edema, no calf tenderness, no Darrian's signs. NEUROLOGIC: The patient is alert, awake, responsive. Able to move upper and lower extremities without assistance. MUSCULOSKELETAL: Shows elevated body mass index of 29. VASCULAR: Palpable pulses.. DIAGNOSTICS: Sodium 133, potassium 3.6, chloride 84, CO2 38, anion gap 14, BUN 78, creatinine 2.6. Glucose 94, calcium 9.0, magnesium 2.8. AST 49. LFTs are normal. DIAGNOSES: 1. Large right renal simple cyst. 2. Possible contrast-induced nephropathy. 3. Hypokalemia. 4. Diabetes mellitus with hemoglobin A1c of 6.9. 5. Hyponatremia. 6. Hypomagnesemia. 7. Obesity with elevated body mass index of 29. 8. Uncontrolled hypertension. 9. Angina. 10. Dyslipidemia. 11. Hypokalemia. PLAN: At this time, the patient has been ordered repeat labs. The patient will be continued on telemetry. Nephrology consultation has been requested. The patient's repeat lab will be ordered. The patient's repeat labs will be ordered for the morning. Nephrology consultation has been requested for evaluation of kidney injury. The patient has been ordered out of bed to chair. The patient's condition, diagnoses, test results updated with the patient's [id number]. All questions concerned answered. I have ordered the patient to be out of bed to chair. Repeat labs ordered. Consultation Cardiology and Nephrology. Refer to TCU ordered. CURRENT MEDICATIONS: Hydralazine 10 mg q. 4 hours p.r.n., aspirin 81 daily, Humulin low-dose sliding scale coverage in the morning and at bedtime, Imdur 60 mg daily, Levemir 10 units with breakfast and dinner, Lipitor 10 mg daily, Lopressor 25 mg twice a day, Plavix 75 mg daily, Protonix 40 mg daily, Xopenex 0.63 mg nebulizer every 6 hours, consistent with carbohydrate diet, SHANITA stockings, SCDs, out of bed, occupational therapy, physical therapy ordered. The patient's daughter updated about the patient's condition and diagnoses. Updated test results explained to the patient's [id number]. we will await further recommendations from Cardiology and Nephrology regarding further management. In addition, we will consider some low-dose hydration because of possible contrast-induced nephropathy. Dictated and electronically signed, not read. Francesco Richards MD
--- NOTE | 2017-03-03 15:03 | CP.PCM.CON ---
History of Present Illness - History of Present Illness History of Present Illness: Initial Nephrology Consultation: Assessment: Stable Acute Kidney Injury (N17.9) likely pre-renal state (as evident by much higher BUN, elevated bicarb) and possibly contribution by IV contrast exposure, hemodynamic fluctuations Diabetic chronic Kidney Disease (E11.22) Hypertensive Chronic Kidney Disease (I12.9) Chronic Kidney Disease (N18.3) Stage 3 with ? mg proteinuria (R80.9) likely due to DM/HTN Anemia (D64.9), HTN (I12.9) Hyponatremia, DM, CAD s/p stent, Hyperlipidemia, overweight ? Acute bronchitis Rt renal cyst Plan No acute need for renal replacement therapy at this time. Hypertension control with meds as ordered. Patient not on ACEI/ARB due to ANTOINETTE. avoid hypotension Monitor Input/Output, daily weights and renal function with basic metabolic panel hold lasix and agree with IVF Check urine analysis, spot protein/creatinine, urine Na/cr, serum uric acid Check for 25-OH vitamin D, iPTH, phosphorus level Dose meds/antibiotics for reduced GFR. Avoid fleets enema/magnesium based laxatives. Avoid nephrotoxins/NSAIDs/ iodinated contrast (unless needed emergently) Glycemic control Further work up/management as per primary team Thanks for allowing me to participate in care of your patient. Will follow patient with you. Please call if any Qs. d/w team and daughter Dr Loera Santo Office: [phone] Chief Complaint; cough reason for consult ANTOINETTE HPI: Pt is a 81 F with long standing hx of diabetes Mellitus, hypertension , and also hyperlipidemia, CAD s/p stent, aware about CKD for last 1 year presented with complaints of SOB and was found to have pulmonary congestion which was managed with IV lasix. also underwent cardiac cath 03/01/17 which showed CAD required stent. renal consult for ANTOINETTE management Denies OTC/herbal meds or NSAIDs had recent iodinated contrast exposure. SBP has jonathon fluctuating ranging from 110 -200 mmHg ROS: daughter in-law helped in croatian interpretation Cardiovascular: No chest pain. Pulmonary: c/o shortness of breath with cough Gastrointestinal: denies abdominal pain No nausea. No vomiting. Genitourinary: No pain while urinating. Denies blood in urine. All other negative Physical Examination: General Appearance: Comfortable, in no acute respiratory distress, co-operative . Vitals reviewed and noted as below Head; Atraumatic, normocephalic ENT: no ulcers no thrush. Tongue is midline. Oropharynx: no rash or ulcers. EYES: Pupils are equal, round and reactive to light accommodation. Eye muscles and extraocular movement intact. Sclera is anicteric. Neck; supple no lymphadenopathy, no thyromegaly or bruit Lungs: Normal respiratory rate/effort. Breath sounds bilateral equal and has b/ l wheezes Heart: Normal rate. s1s2 normal. No rub or gallop. Extremities: no edema. No varicose veins. some non pitting puffing around ankle noted Neurological: Patient is alert, awake and oriented to person, place and time. No focal deficit. Strength bilateral appropriate and equal Skin: Warm and dry. Normal turgor. No rash. Palpitation: Normal elasticity for age Abdomen: Abdomen is soft. Bowel sounds +. There is no abdominal tenderness, no guarding/rigidity no organomegaly Psych: normal insight and normal affect/mood MSK: no joint tenderness or swelling. Digits and nails normal, no deformity : kidney or bladder not palpable Labs/imaging reviewed. Past medical history, past surgical history, family history, social history, allergy reviewed and noted as below Family hx: no hx of CKD. Rest non-contributory Work up: renal sono: rt renal 10 cm cyst Past Patient History - Infectious Disease Hx of Infectious Diseases: None - Tetanus Immunizations Tetanus Immunization: Unknown - Past Social History Smoking Status: Never Smoked - CARDIAC Hx Cardiac Disorders: Yes (mi) Hx Hypertension: Yes Hx Peripheral Edema: Yes (ble +1) - NEUROLOGICAL Hx Migraine: Yes - HEENT Hx HEENT Problems: Yes (eyeglasses) - RENAL Hx Chronic Kidney Disease: Yes - ENDOCRINE/METABOLIC Hx Diabetes Mellitus Type 2: Yes - MUSCULOSKELETAL/RHEUMATOLOGICAL Hx Falls: No Hx Unsteady Gait: Yes - PSYCHIATRIC Hx Substance Use: No - SURGICAL HISTORY Hx Cardiac Catheterization: Yes (03/01/17) Hx Coronary Stent: Yes (ptca with stent 06/2016) Other/Comment: cardiac cath 03/01/17 Meds Allergies/Adverse Reactions: Allergies Allergy/AdvReac Type Severity Reaction Status Date / Time No Known Allergies Allergy Verified 02/28/17 23:48 - Medications Medications: Current Medications Acetaminophen (Tylenol 325mg Tab) 650 mg PO Q6H PRN PRN Reason: TEMP>=99.5F Last Admin: 03/03/17 13:14 Dose: 650 mg Aspirin (Ecotrin) 81 mg PO DAILY [facility] [place] Last Admin: 03/03/17 09:23 Dose: 81 mg Atorvastatin Calcium (Lipitor) 10 mg PO DIN [facility] [place] Last Admin: 03/02/17 17:36 Dose: 10 mg Clopidogrel Bisulfate (Plavix) 75 mg PO DAILY [facility] [place] Last Admin: 03/03/17 09:24 Dose: 75 mg Hydralazine HCl (Apresoline) 10 mg IVP Q4 PRN PRN Reason: Systolic Blood Pressure Sodium Chloride (Sodium Chloride 0.9%) 1,000 mls @ 60 mls/hr IV .[id number] [facility] [place] Last Admin: 03/03/17 11:49 Dose: 60 mls/hr Insulin Detemir (Levemir) 10 unit SC ACBD [facility] Last Admin: 03/03/17 08:22 Dose: Not Given Insulin Human Regular (Humulin R Low) 0 units SC ACHS [facility] [place] PRN Reason: Protocol Last Admin: 03/03/17 13:13 Dose: 1 units Isosorbide Mononitrate (Imdur) 60 mg PO DAILY [facility] [place] Last Admin: 03/03/17 09:24 Dose: 60 mg Levalbuterol HCl (Xopenex) 0.63 mg IH [id number] [facility] [place] Last Admin: 03/03/17 14:22 Dose: 0.63 mg Metoprolol Tartrate (Lopressor) 25 mg PO BID [facility] [place] Last Admin: 03/03/17 09:23 Dose: 25 mg Pantoprazole Sodium (Protonix Ec Tab) 40 mg PO 0600 [facility] [place] Last Admin: 03/03/17 05:35 Dose: 40 mg Results - Vital Signs Recent Vital Signs: Last Vital Signs Temp 98.9 F 03/03/17 12:00 Pulse 73 03/03/17 12:00 Resp 18 03/03/17 12:00 BP 102/45 L 03/03/17 12:00 Pulse Ox 97 03/03/17 06:00 - Labs Result Diagrams: 03/02/17 05:00 03/03/17 05:30 Labs: Laboratory Results - last 24 hr 03/02/17 03/02/17 03/03/17 16:11 21:32 01:58 Sodium Potassium Chloride Carbon Dioxide Anion Gap BUN Creatinine Est GFR ( Amer) Est GFR (Non-Af Amer) POC Glucose (mg/dL) 223 H 265 H 136 H Random Glucose Calcium Magnesium Total Bilirubin Direct Bilirubin AST ALT Alkaline Phosphatase Total Protein Albumin Globulin Albumin/Globulin Ratio 03/03/17 03/03/17 03/03/17 05:30 07:37 11:03 Sodium 133 Potassium 3.6 Chloride 84 L Carbon Dioxide 38 H Anion Gap 14 BUN 78 H Creatinine 2.6 H Est GFR ( Amer) 21 Est GFR (Non-Af Amer) 18 POC Glucose (mg/dL) 94 168 H Random Glucose 94 Calcium 9.0 Magnesium 2.8 H Total Bilirubin 0.3 Direct Bilirubin 0.3 AST 49 H ALT 39 Alkaline Phosphatase 34 L Total Protein 7.1 Albumin 4.0 Globulin 3.0 Albumin/Globulin Ratio 1.3
[2017-03-03] MEDS: guaiFENesin DM 100 mg-10 mg/5 ml UD PO SCH ×2 (15:46→21:35)
[2017-03-04] MEDS: Levalbuterol 0.63 MG/3 ML Inhal Soln UD IH SCH ×4 (01:14→20:36)
[2017-03-04] MEDS: guaiFENesin DM 100 mg-10 mg/5 ml UD PO SCH ×6 (03:48→22:38)
[2017-03-04] MEDS: Sodium Chloride 0.9% 1,000 ML IV SCH ×2 (04:00→11:48)
[2017-03-04 06:05] LABS: BASO # 0.01 K/mm3 (0.0-2.0); BASO % 0.2 % (0.0-3.0); EOS # 0.1 (0.0-0.7); EOS % 2.4 % (1.5-5.0); GRAN # 3.65 (1.4-6.5); GRAN % 72.1 % (50.0-68.0); HEMOGLOBIN 10.1 g/dL (12.0-16.0); LYMPH # 0.9 (1.2-3.4); LYMPH % 18.2 % (22.0-35.0); MEAN CELL VOLUME 93.6 fl (80.0-105.0); MEAN CORPUSCULAR HEMOGLOBIN 30.9 pg (25.0-35.0); MEAN PLATELET VOLUME 8.8 fl (7.0-11.0); MONO # 0.4 (0.1-0.6); MONO % 7.1 % (1.0-6.0); RBC 3.27 10^6/uL (3.5-6.1); RED CELL DISTRIBUTION WIDTH 12.6 % (11.5-14.5); WHITE BLOOD COUNT 5.1 10^3/ul (4.5-11.0)
[2017-03-04] MEDS: Pantoprazole 40 mg EC Tab PO SCH (06:12)
[2017-03-04 06:59] LABS: ALB/GLOB RATIO 1.2 (1.1-1.8); ALBUMIN 3.5 g/dL (3.0-4.8); BILIRUBIN,DIRECT 0.3 mg/dL (0.0-0.4); CALCIUM 8.6 mg/dL (8.4-10.5); MAGNESIUM 2.5 mg/dL (1.7-2.2); URIC ACID 11.1 mg/dL (2.5-6.2)
[2017-03-04] MEDS ORDERED: Potassium Chloride 40 mEq/30 ml LIQ UD PO ONE (07:07)
[2017-03-04] MEDS: Insulin Reg-LOW-Coverage SC SCH ×4 (08:46→22:23)
[2017-03-04] MEDS: Insulin Detemir 100 units/ml Vial (Levemir) SC SCH ×2 (08:46→18:15)
[2017-03-04] MEDS ORDERED: Sodium Chloride 0.9% 1,000 ML IV SCH (09:56)
--- NOTE | 2017-03-04 11:18 | CP.PCM.PN ---
Subjective - Date & Time of Evaluation Date of Evaluation: 03/04/17 Time of Evaluation: 11:17 - Subjective Subjective: Follow up Nephrology Consultation: Assessment: Stable Acute Kidney Injury (N17.9) likely pre-renal state (as evident by much higher BUN, elevated bicarb, uric acid) and possibly contribution by IV contrast exposure, hemodynamic fluctuations Diabetic chronic Kidney Disease (E11.22) Hypertensive Chronic Kidney Disease (I12.9) Chronic Kidney Disease (N18.3) Stage 3 with ? mg proteinuria (R80.9) likely due to DM/HTN Anemia (D64.9), HTN (I12.9) Hyponatremia, DM, CAD s/p stent, Hyperlipidemia, overweight ? Acute bronchitis Rt renal cyst Plan No acute need for renal replacement therapy at this time. Hypertension control with meds as ordered. Patient not on ACEI/ARB due to ANTOINETTE. avoid hypotension Monitor Input/Output, daily weights and renal function with basic metabolic panel hold lasix and agree with IVF. repeat CXR in AM Check urine analysis, spot protein/creatinine, urine Na/cr, serum uric acid Check for 25-OH vitamin D, iPTH, phosphorus level Dose meds/antibiotics for reduced GFR. Avoid fleets enema/magnesium based laxatives. Avoid nephrotoxins/NSAIDs/ iodinated contrast (unless needed emergently) Glycemic control Further work up/management as per primary team Thanks for allowing me to participate in care of your patient. Will follow patient with you. Please call if any Qs. d/w team Dr Evaristo Blanchard Office: [phone] Chief Complaint; cough reason for consult ANTOINETTE HPI: Pt is a 81 F with long standing hx of diabetes Mellitus, hypertension , and also hyperlipidemia, CAD s/p stent, aware about CKD for last 1 year presented with complaints of SOB and was found to have pulmonary congestion which was managed with IV lasix. also underwent cardiac cath 03/01/17 which showed CAD required stent. renal consult for ANTOINETTE management Denies OTC/herbal meds or NSAIDs had recent iodinated contrast exposure. SBP has jonathon fluctuating ranging from 110 -200 mmHg ROS: stafflaw helped in luxem[place]ish interpretation Cardiovascular: No chest pain. Pulmonary: denies shortness of breath but with cough Gastrointestinal: denies abdominal pain No nausea. No vomiting. Genitourinary: No pain while urinating. Denies blood in urine. All other negative Physical Examination: General Appearance: Comfortable, in no acute respiratory distress, co-operative . Vitals reviewed and noted as below Head; Atraumatic, normocephalic ENT: no ulcers no thrush. Tongue is midline. Oropharynx: no rash or ulcers. EYES: Pupils are equal, round and reactive to light accommodation. Eye muscles and extraocular movement intact. Sclera is anicteric. Neck; supple no lymphadenopathy, no thyromegaly or bruit Lungs: Normal respiratory rate/effort. Breath sounds bilateral equal and has bibasal few crackles Heart: Normal rate. s1s2 normal. No rub or gallop. Extremities: no edema. No varicose veins. some non pitting puffing around ankle noted Neurological: Patient is alert, awake and oriented to person, place and time. No focal deficit. Strength bilateral appropriate and equal Skin: Warm and dry. Normal turgor. No rash. Palpitation: Normal elasticity for age Abdomen: Abdomen is soft. Bowel sounds +. There is no abdominal tenderness, no guarding/rigidity no organomegaly Psych: normal insight and normal affect/mood MSK: no joint tenderness or swelling. Digits and nails normal, no deformity : kidney or bladder not palpable Labs/imaging reviewed. Past medical history, past surgical history, family history, social history, allergy reviewed and noted as below Family hx: no hx of CKD. Rest non-contributory Work up: renal sono: rt renal 10 cm cyst Objective - Vital Signs/Intake and Output Vital Signs (last 24 hours): Temp Pulse Resp BP Pulse Ox 98.4 F 82 20 125/62 96 03/04/17 06:10 03/04/17 09:08 03/04/17 06:10 03/04/17 09:08 03/04/17 06:10 Intake and Output: 03/04/17 03/04/17 06:59 18:59 Intake Total 8 720 Output Total 300 Balance -292 720 - Medications Medications: Current Medications Acetaminophen (Tylenol 325mg Tab) 650 mg PO Q6H PRN PRN Reason: TEMP>=99.5F Last Admin: 03/03/17 13:14 Dose: 650 mg Aspirin (Ecotrin) 81 mg PO DAILY [facility] Last Admin: 03/04/17 09:08 Dose: 81 mg Atorvastatin Calcium (Lipitor) 10 mg PO DIN [facility] Last Admin: 03/03/17 17:23 Dose: 10 mg Benzonatate (Tessalon Perles) 200 mg PO TID [facility] Last Admin: 03/04/17 08:49 Dose: 200 mg Clopidogrel Bisulfate (Plavix) 75 mg PO DAILY [facility] Last Admin: 03/04/17 09:08 Dose: 75 mg Guaifenesin/Dextromethorphan (Robitussin Dm) 5 ml PO Q4H [facility] Stop: 03/08/17 15:01 Last Admin: 03/04/17 06:52 Dose: 5 ml Hydralazine HCl (Apresoline) 10 mg IVP Q4 PRN PRN Reason: Systolic Blood Pressure Sodium Chloride (Sodium Chloride 0.9%) 1,000 mls @ 60 mls/hr IV .[id number] [facility] Insulin Detemir (Levemir) 10 unit SC ACBD [facility] Last Admin: 03/04/17 08:46 Dose: Not Given Insulin Human Regular (Humulin R Low) 0 units SC ACHS [facility] PRN Reason: Protocol Last Admin: 03/04/17 08:46 Dose: Not Given Isosorbide Mononitrate (Imdur) 60 mg PO DAILY [facility] Last Admin: 03/04/17 09:08 Dose: 60 mg Levalbuterol HCl (Xopenex) 0.63 mg IH [id number] [facility] Last Admin: 03/04/17 01:14 Dose: 0.63 mg Metoprolol Tartrate (Lopressor) 25 mg PO BID [facility] Last Admin: 03/04/17 09:08 Dose: 25 mg Pantoprazole Sodium (Protonix Ec Tab) 40 mg PO 0600 [facility] Last Admin: 03/04/17 06:12 Dose: 40 mg - Labs Labs: 03/04/17 05:30 03/04/17 05:30 PT 10.3 SECONDS (9.4-12.5) 03/01/17 00:09 INR 0.95 (0.93-1.08) 03/01/17 00:09 APTT 35.5 Seconds (25.1-36.5) 03/01/17 00:09
[2017-03-04] MEDS ORDERED: Albuterol-Ipratrop 3 mg / 0.5 (3 ml) UD IH STA (21:25)
[2017-03-04 22:56] LABS: URINE BILIRUBIN NEGATIVE (NEGATIVE); URINE BLOOD SMALL (NEGATIVE); URINE GLUCOSE (UA) 100 mg/dL (NEGATIVE); URINE LEUKOCYTE ESTERASE TRACE Leu/uL (NEGATIVE); URINE NITRATE NEGATIVE (NEGATIVE); URINE PROTEIN 30 mg/dL (<30 mg/dL); URINE UROBILINOGEN 0.2 E.U./dL (<1 E.U./dL)
[2017-03-04 23:44] LABS: URINE COLOR YELLOW (YELLOW)
[2017-03-04 23:45] LABS: URINE APPEARANCE CLEAR (CLEAR)
[2017-03-04 23:49] LABS: PH,URINE 5.5 (4.7-8.0); URINE BILIRUBIN NEGATIVE (NEGATIVE); URINE BLOOD NEGATIVE (NEGATIVE); URINE GLUCOSE (UA) NEGATIVE (NEGATIVE); URINE LEUKOCYTE ESTERASE NEGATIVE Leu/uL (NEGATIVE); URINE NITRATE NEGATIVE (NEGATIVE); URINE PROTEIN NEGATIVE mg/dL (<30 mg/dL); URINE UROBILINOGEN 0.2 E.U./dL (<1 E.U./dL)
[2017-03-04 23:51] LABS: URINE EPITHELIAL CELLS 0 - 2 /hpf (0-5)
[2017-03-04 23:57] LABS: CREATININE,RANDOM URINE 53 mg/dL; TOTAL PROTEIN,RANDOM URINE 20 mg/L; URINE APPEARANCE CLEAR (CLEAR); URINE COLOR YELLOW (YELLOW)
--- NOTE | 2017-03-05 00:38 | PN ---
DATE: 03/04/2017 SUBJECTIVE: The patient is seen lying in room 275, bed 1. Overnight nurse's notes were reviewed. The patient was found to be alert, awake, and responsive. The patient slept well overnight. According to the nurses' notes, the patient's appetite was found to be . The patient was placed out of bed to chair. OBJECTIVE: VITAL SIGNS: T-max 98.4 to 98.6. Telemetry shows sinus rhythm; heart rate 63, 84, 65, 72; blood pressure 137/85, 125/62, 157/71, 137/75, 109/55, 102/45, 116/60; respiration 18; O2 sat is 95%, 96%, 99%, 100%. INTAKE AND OUTPUT: Intake 480, output 700. HEENT: Head is normocephalic and atraumatic. Shows pinkish conjunctivae. Anicteric sclerae. No oropharyngeal lesion. NECK: No neck rigidity. No jugular venous distention. No carotid bruit. CHEST: Kyphosis. LUNGS: Shows questionable decreased breath sounds and occasional rhonchi. CARDIOVASCULAR: S1, S2, regular rhythm. Questionable soft systolic murmur left sternal border, right second intercostal space, left second intercostal space, left sternal border. ABDOMEN: Soft, protuberant. Positive bowel sounds. No hepatosplenomegaly noted. No guarding. No rigidity, rebound tenderness. No costovertebral angle tenderness. GENITALIA: Female. RECTAL: Deferred. EXTREMITIES: Shows no pitting edema, no calf tenderness, no Darrian's signs. No clubbing, no cyanosis. MUSCULOSKELETAL: Shows a body mass index of 31. NEUROLOGIC: The patient is alert, awake, responsive, and is able to move upper and lower extremity without assistance. GAIT: Not tested. VASCULAR: Palpable pulses. DIAGNOSTICS: On 03/04/2017; WBC 5.1, hemoglobin/hematocrit 10.1/30.6, platelet 226. Granulocytes 72% segs. Sodium 131; potassium 3.4; chloride 89; CO2 of 31; anion gap 14; BUN 78; creatinine down to 2.1; GFR 23; glucose 290, 113, 116, 201, 185; uric acid 11.1; calcium 8.6; phosphorus 4.2; magnesium 2.5. LFTs are normal. Vitamin D 25-hydroxy 37.2, blood and urine cultures are negative. IMPRESSION: 1. Status post non-ST elevation myocardial infarction. 2. Status post successful angioplasty and stent placement of the critically stenosed left anterior descending artery. 3. Acute kidney injury. 4. Possible contrast-induced nephropathy. 5. Hypertension. 6. Obesity with elevated body mass index of 31. 7. Leukocytosis with granulocytosis. 8. Normocytic anemia. 9. Hyponatremia. 10. Hypokalemia. 11. Chronic kidney disease stage III/IV. 12. Type 2 diabetes mellitus with hemoglobin A1c of 6.9. 13. Hyperuricemia. 14. Hypomagnesemia. 15. Transient transaminitis. 16. Acute lia-DC-jsolllwew myocardial infarction with elevated troponin. 17. Proteinuria, microscopic hematuria. 18. Large right renal simple cyst. 19. Prerenal kidney injury. 20. Hypertensive and diabetic chronic kidney disease. 21. Chronic kidney disease stage III. 22. Proteinuria. 23. Hyponatremia. PLAN: At this time, the patient has been ordered serial labs. The patient has been ordered repeat labs. Current consultation, nephrology, neurology, referral TCU. CURRENT MEDICATIONS: Hydralazine 10 mg IV q. 4 h. p.r.n., Ecotrin 81 mg daily, regular insulin low-dose sliding scale coverage, Imdur 60 mg daily, Levemir 10 units breakfast and dinner, Lipitor 10 mg daily, Lopressor 25 mg twice a day, Plavix 75 mg daily, the patient is given potassium supplementation, Protonix 40 mg daily, IV fluid 0.9 normal saline at 60 mL an hour as per nephrology, Tessalon Perles 200 three times a day, Tylenol p.r.n., Xopenex nebulizer 0.6 mg q. 6 hours. Chest x-ray; PA and lateral ordered by airline lounge receptionist. Consistent carbohydrate diet, out of bed, SHANITA stockings, SCDs, physical therapy, occupational therapy ordered, stool occult blood ordered, repeat urinalysis ordered. Dictated and electronically signed, not read. Francesco Richards MD
[2017-03-05] MEDS: Levalbuterol 0.63 MG/3 ML Inhal Soln UD IH SCH ×4 (03:20→19:56)
[2017-03-05] MEDS: Sodium Chloride 0.9% 1,000 ML IV SCH (03:56)
[2017-03-05 06:30] LABS: BASO # 0.01 K/mm3 (0.0-2.0); BASO % 0.2 % (0.0-3.0); EOS # 0.1 (0.0-0.7); EOS % 1.7 % (1.5-5.0); GRAN # 4.44 (1.4-6.5); GRAN % 81.4 % (50.0-68.0); HEMOGLOBIN 10.3 g/dL (12.0-16.0); LYMPH # 0.6 (1.2-3.4); LYMPH % 10.3 % (22.0-35.0); MEAN CELL VOLUME 95.1 fl (80.0-105.0); MEAN CORPUSCULAR HEMOGLOBIN 31.5 pg (25.0-35.0); MEAN CORPUSCULAR HGB CONC 33.1 g/dl (31.0-37.0); MEAN PLATELET VOLUME 8.6 fl (7.0-11.0); MONO # 0.4 (0.1-0.6); MONO % 6.4 % (1.0-6.0); RBC 3.27 10^6/uL (3.5-6.1); RED CELL DISTRIBUTION WIDTH 12.6 % (11.5-14.5); WHITE BLOOD COUNT 5.5 10^3/ul (4.5-11.0)
[2017-03-05] MEDS: guaiFENesin DM 100 mg-10 mg/5 ml UD PO SCH ×6 (06:32→22:29)
[2017-03-05] MEDS: Pantoprazole 40 mg EC Tab PO SCH (06:32)
[2017-03-05 07:07] LABS: ALB/GLOB RATIO 1.2 (1.1-1.8); ALBUMIN 3.4 g/dL (3.0-4.8); BILIRUBIN,DIRECT 0.3 mg/dL (0.0-0.4); CALCIUM 8.7 mg/dL (8.4-10.5); MAGNESIUM 1.9 mg/dL (1.7-2.2); URIC ACID 8.9 mg/dL (2.5-6.2)
[2017-03-05] MEDS: Insulin Reg-LOW-Coverage SC SCH ×4 (08:40→22:29)
[2017-03-05] MEDS: Insulin Detemir 100 units/ml Vial (Levemir) SC SCH ×2 (08:40→18:31)
--- NOTE | 2017-03-05 10:23 | RAD ---
HISTORY: cough COMPARISON: No prior. TECHNIQUE: Chest PA and lateral FINDINGS: LUNGS: No active pulmonary disease. PLEURA: No significant pleural effusion identified. No pneumothorax apparent. CARDIOVASCULAR: Cardiomegaly. OSSEOUS STRUCTURES: No significant abnormalities. VISUALIZED UPPER ABDOMEN: Normal. OTHER FINDINGS: None. IMPRESSION: No active disease.
--- NOTE | 2017-03-05 11:13 | CP.PCM.PN ---
Subjective - Date & Time of Evaluation Date of Evaluation: 03/05/17 Time of Evaluation: 11:09 - Subjective Subjective: Follow up Nephrology Consultation: Assessment: Stable Acute Kidney Injury (N17.9) likely pre-renal state (as evident by much higher BUN, elevated bicarb, uric acid) and possibly contribution by IV contrast exposure, hemodynamic fluctuations Diabetic chronic Kidney Disease (E11.22) Hypertensive Chronic Kidney Disease (I12.9) Chronic Kidney Disease (N18.3) Stage 3 without proteinuria likely due to HTN Anemia (D64.9), HTN (I12.9) Hyponatremia, DM, CAD s/p stent, Hyperlipidemia, overweight ? Acute bronchitis Rt renal cyst, hypokalemia Plan No acute need for renal replacement therapy at this time. renal function improved Hypertension control with meds as ordered. Patient not on ACEI/ARB due to ANTOINETTE. increased lopressor and added hydralazine. will check renin/kayla and metanephrine, renal artery doppler Monitor Input/Output, daily weights and renal function with basic metabolic panel d/c IVF. consider steroids for asthmatic bronchitis supplement electrolytes as needed Dose meds/antibiotics for improved GFR. Avoid fleets enema/magnesium based laxatives. Avoid nephrotoxins/NSAIDs/ iodinated contrast (unless needed emergently) Glycemic control Further work up/management as per primary team Thanks for allowing me to participate in care of your patient. Will follow patient with you. Please call if any Qs. d/w team Dr Evaristo Blanchard Office: [phone] Chief Complaint; cough reason for consult ANTOINETTE HPI: Pt is a 81 F with long standing hx of diabetes Mellitus, hypertension , and also hyperlipidemia, CAD s/p stent, aware about CKD for last 1 year presented with complaints of SOB and was found to have pulmonary congestion which was managed with IV lasix. also underwent cardiac cath 03/01/17 which showed CAD required stent. renal consult for ANTOINETTE management Denies OTC/herbal meds or NSAIDs had recent iodinated contrast exposure. SBP has jonathon fluctuating ranging from 110 -200 mmHg c/o cough and wheezing Physical Examination: General Appearance: Comfortable, in no acute respiratory distress, co-operative . Vitals reviewed and noted as below Head; Atraumatic, normocephalic ENT: no ulcers no thrush. Tongue is midline. Oropharynx: no rash or ulcers. EYES: Pupils are equal, round and reactive to light accommodation. Eye muscles and extraocular movement intact. Sclera is anicteric. Neck; supple no lymphadenopathy, no thyromegaly or bruit Lungs: Increased respiratory rate/effort. Breath sounds bilateral equal and has b/l wheezing Heart: Normal rate. s1s2 normal. No rub or gallop. Extremities: no edema. No varicose veins. some non pitting puffing around ankle noted Neurological: Patient is alert, awake and oriented to person, place and time. No focal deficit. Strength bilateral appropriate and equal Skin: Warm and dry. Normal turgor. No rash. Palpitation: Normal elasticity for age Abdomen: Abdomen is soft. Bowel sounds +. There is no abdominal tenderness, no guarding/rigidity no organomegaly Psych: normal insight and normal affect/mood MSK: no joint tenderness or swelling. Digits and nails normal, no deformity : kidney or bladder not palpable Labs/imaging reviewed. Past medical history, past surgical history, family history, social history, allergy reviewed and noted as below Family hx: no hx of CKD. Rest non-contributory Work up: renal sono: rt renal 10 cm cyst Objective - Vital Signs/Intake and Output Vital Signs (last 24 hours): Temp Pulse Resp BP Pulse Ox 98.6 F 97 H 20 180/77 H 99 03/05/17 06:00 03/05/17 06:35 03/05/17 06:00 03/05/17 06:35 03/05/17 06:00 Intake and Output: 03/05/17 03/05/17 06:59 18:59 Intake Total 120 Output Total 1250 Balance -1130 - Medications Medications: Current Medications Acetaminophen (Tylenol 325mg Tab) 650 mg PO Q6H PRN PRN Reason: TEMP>=99.5F Last Admin: 03/03/17 13:14 Dose: 650 mg Aspirin (Ecotrin) 81 mg PO DAILY [facility] Last Admin: 03/04/17 09:08 Dose: 81 mg Atorvastatin Calcium (Lipitor) 10 mg PO DIN [facility] Last Admin: 03/04/17 18:17 Dose: 10 mg Benzonatate (Tessalon Perles) 200 mg PO TID [facility] Last Admin: 03/04/17 18:17 Dose: 200 mg Clopidogrel Bisulfate (Plavix) 75 mg PO DAILY [facility] Last Admin: 03/04/17 09:08 Dose: 75 mg Guaifenesin/Dextromethorphan (Robitussin Dm) 5 ml PO Q4H [facility] Stop: 03/08/17 15:01 Last Admin: 03/05/17 06:33 Dose: Not Given Hydralazine HCl (Apresoline) 10 mg IVP Q4 PRN PRN Reason: Systolic Blood Pressure Last Admin: 03/05/17 06:35 Dose: 10 mg Hydralazine HCl (Apresoline) 25 mg PO BID [facility] Insulin Detemir (Levemir) 10 unit SC ACBD [facility] Last Admin: 03/05/17 08:40 Dose: 10 unit Insulin Human Regular (Humulin R Low) 0 units SC ACHS [facility] PRN Reason: Protocol Last Admin: 03/05/17 08:40 Dose: 2 units Isosorbide Mononitrate (Imdur) 60 mg PO DAILY [facility] Last Admin: 03/04/17 09:08 Dose: 60 mg Levalbuterol HCl (Xopenex) 0.63 mg IH [id number] [facility] Last Admin: 03/05/17 09:22 Dose: Not Given Levalbuterol HCl (Xopenex) 0.63 mg IH Q2H PRN PRN Reason: Shortness of Breath Metoprolol Tartrate (Lopressor) 50 mg PO BID [facility] Pantoprazole Sodium (Protonix Ec Tab) 40 mg PO 0600 [facility] Last Admin: 03/05/17 06:32 Dose: 40 mg - Labs Labs: 03/05/17 06:00 03/05/17 06:00 PT 10.3 SECONDS (9.4-12.5) 03/01/17 00:09 INR 0.95 (0.93-1.08) 03/01/17 00:09 APTT 35.5 Seconds (25.1-36.5) 03/01/17 00:09
[2017-03-05] MEDS: Potassium Chloride 40 mEq/30 ml LIQ UD PO SCH ×2 (11:32→13:33)
--- NOTE | 2017-03-05 14:19 | PN ---
DATE: 03/05/2017 SUBJECTIVE: The patient is seen in room 275, bed 1. Overnight nurse's notes were reviewed. The patient's appetite was 100%. The patient tolerated and finished the lunch and dinner. The patient overnight sat up in the chair. No distress noted. The patient had an episode of some shortness of breath on exertion and wheezing. The patient's blood pressure was 176/87, hydralazine was given. OBJECTIVE: VITAL SIGNS: T-max 98.8, telemetry shows sinus rhythm, heart rate 79, 84, 97, and 81, respirations 20, blood pressures 180/77, 173/83, 157/76, 137/85, and 125/62, and O2 sat 99%. INTAKE AND OUTPUT: Intake 120, output 1250. HEENT: Head examination normocephalic, atraumatic. HEENT examination shows pinkish pale conjunctivae. Anicteric sclerae. No oropharyngeal lesion. NECK: No jugular venous distention. No audible carotid bruit. CHEST: Kyphosis. LUNGS: Shows positive rhonchi bilaterally. Questionable decreased breath sounds at the bases, left more than the right. CARDIOVASCULAR: S1 and S2, regular rhythm. Questionable soft systolic murmur left sternal border, right second intercostal space, left second intercostal space. ABDOMEN: Soft, protuberant. Positive bowel sounds. No hepatosplenomegaly noted. GENITALIA: Female. RECTAL: Deferred. EXTREMITIES: Positive swelling of the lower extremity, which is new from last day or two. No Darrian's signs noted. MUSCULOSKELETAL: Shows body mass index of 31. NEUROLOGIC: The patient is alert, awake, responsive, is able to move upper and lower extremity without assistance. Gait examination could not be tested. VASCULAR: Palpable pulses. DIAGNOSTIC STUDIES: 03/05/2017, WBC 5.5, hemoglobin and hematocrit 10.3 and 31.1, and platelets 209. Granulocytes 81% segs. Sodium 135, potassium 3.5, chloride 96, CO2 30, anion gap 12, BUN 41, creatinine down to 1.4, GFR 44, glucose 244, 220, 149, 285, 201, and 116, uric acid 8.9, calcium 8.7, and magnesium 1.9. LFTs are normal. Blood and urine cultures are negative. Chest x-ray done today this morning, 03/05/2017, chest x-ray shows cardiomegaly, no obvious congestive heart failure noted at present. IMPRESSION: 1. Acute non-ST elevation myocardial infarction. 2. Unstable angina. 3. Status post angioplasty and stent placement. 4. Uncontrolled hypertension. 5. Bilateral lower extremity venous stasis. 6. Dyspnea on exertion with wheezing. 7. Questionable bronchitis. 8. Tachycardia. 9. Hypertension. 10. Anemia. 11. Leukocytosis with granulocytosis. 12. Hypokalemia. 13. Acute kidney injury with underlying chronic kidney disease stage III. 14. Hyperuricemia. 15. Hyponatremia. 16. Type 2 diabetes mellitus with hemoglobin A1c of 6.9. 17. Questionable and possible diastolic right-sided congestive heart failure with elevated BNP. 18. Resolving acute kidney injury. 19. Proteinuria. 20. Glycosuria. 21. Microscopic hematuria. 22. Pyuria. PLAN: At this time, the patient has been ordered for repeat labs. The patient will be ordered a BNP stat. The patient has been ordered a venous Doppler of the lower extremity stat. The patient has been ordered stat BNP. The patient has been ordered serial labs. The patient has been ordered repeat CMP, repeat LFTs, magnesium. CBC ordered. Current consultation, Nephrology, Cardiology. Current medications hydralazine 10 mg IV q.4 hours p.r.n. 2. The patient is started on hydralazine 25 mg twice a day by the soil fertility extension specialist. The patient is on Ecotrin 81 mg daily. The patient is on aspirin 81 daily. The patient is on Humulin low-dose sliding scale coverage, Imdur 60 mg daily, Levemir 10 units a.c. breakfast and dinner, Lipitor 10 mg daily, Lopressor 50 mg twice a day, and Plavix 75 mg daily. The patient is ordered potassium supplementation 40 mEq x2 doses, Protonix 40 mg daily, Tessalon Perles 200 three times a day, Tylenol p.r.n., and Xopenex nebulizer 0.63 mg every 6 hours [id number]. In addition, we will order Xopenex nebulizer 0.63 mg q.2 hours p.r.n. for shortness of breath. Venous Doppler of the lower extremity ordered. Out of bed, SCDs, SHANITA stockings ordered. Occupational therapy, physical therapy ordered. At present, we are awaiting further recommendation from Nephrology. We will await results of the venous Doppler and BNP. At present, the patient will be continued on the above therapeutic intervention as mentioned. The patient's further management will be dependent upon the patient's clinical condition, hemodynamic status and as per the patient response to therapeutic intervention as per the patient's diagnostic test results and as per recommendation by all the physicians involved in the care of the patient.. We will await the results of the BNP and venous Doppler and if the patient has some continued wheezing, the patient will be considered for some intravenous steroid treatment. Francesco Richards MD
[2017-03-06] MEDS: Levalbuterol 0.63 MG/3 ML Inhal Soln UD IH SCH ×3 (02:27→13:38)
[2017-03-06] MEDS: guaiFENesin DM 100 mg-10 mg/5 ml UD PO SCH ×6 (04:31→23:15)
[2017-03-06] MEDS: Pantoprazole 40 mg EC Tab PO SCH (05:10)
[2017-03-06 06:27] LABS: BASO # 0.01 K/mm3 (0.0-2.0); BASO % 0.2 % (0.0-3.0); GRAN # 5.06 (1.4-6.5); GRAN % 85.2 % (50.0-68.0); HEMOGLOBIN 10.3 g/dL (12.0-16.0); LYMPH # 0.6 (1.2-3.4); LYMPH % 9.4 % (22.0-35.0); MEAN CELL VOLUME 94.2 fl (80.0-105.0); MEAN CORPUSCULAR HEMOGLOBIN 31.2 pg (25.0-35.0); MEAN CORPUSCULAR HGB CONC 33.1 g/dl (31.0-37.0); MEAN PLATELET VOLUME 8.7 fl (7.0-11.0); MONO # 0.3 (0.1-0.6); MONO % 5.2 % (1.0-6.0); RBC 3.3 10^6/uL (3.5-6.1); RED CELL DISTRIBUTION WIDTH 12.6 % (11.5-14.5); WHITE BLOOD COUNT 5.9 10^3/ul (4.5-11.0)
[2017-03-06 07:16] LABS: ALB/GLOB RATIO 1.2 (1.1-1.8); ALBUMIN 3.8 g/dL (3.0-4.8); BILIRUBIN,DIRECT 0.4 mg/dL (0.0-0.4); CALCIUM 9.4 mg/dL (8.4-10.5); MAGNESIUM 1.7 mg/dL (1.7-2.2)
[2017-03-06] MEDS: Insulin Detemir 100 units/ml Vial (Levemir) SC SCH ×2 (08:12→17:59)
[2017-03-06] MEDS: Insulin Reg-LOW-Coverage SC SCH ×4 (08:13→22:00)
--- NOTE | 2017-03-06 09:17 | US ---
HISTORY: Leg pain and swelling. Evaluate for DVT PHYSICIAN(S): Jaylon Morejon MD. TECHNIQUE: Duplex sonography and color-flow Doppler with graded compression were used to evaluate the deep venous systems of both lower extremities. FINDINGS: The visualized deep venous systems of both lower extremities are sonographically normal and compressible. Normal wave forms and augmentation are seen. There is no sonographic evidence for deep venous thrombosis in the visualized segments of both lower extremities. IMPRESSION: No sonographic evidence for deep venous thrombosis in the visualized segments of both lower extremities.
--- NOTE | 2017-03-06 09:21 | US ---
PROCEDURE: Bilateral renal artery duplex ultrasound. CLINICAL HISTORY: Renal artery stenosis. Uncontrolled hypertension. Evaluate for renovascular hypertension. PHYSICIAN(S): Jaylon Morejon M.D. TECHNIQUE: Duplex sonography with color-flow Doppler was used to evaluate the visualized segments of the main renal arteries. The patient was evaluated in a fasting state. Imaging in a supine and decubitus position was performed. Limited evaluation of the arcuate waveforms and resistive indices were performed. FINDINGS: The overall quality of the study is adequate. The kidneys are normal in size, shape, and location. The renal parenchyma is thin and echogenic. The right kidney measures 10.1cm in length and the left kidney measures 11.2cm in length. No solid renal masses, abnormal calcifications, or hydronephrosis is seen. There is an 8.4 cm simple cyst in the right lower kidney The main right renal artery is fairly well visualized from the aorta to the hilum. The peak systolic velocity in the right main renal artery is 159 cm/sec. This is consistent with a 0 to 49% stenosis in the main right renal artery. The resistive index is elevated The main left renal artery is visualized in segments from the aorta to the hilum. The peak systolic velocity in the main left renal artery is 120cm/sec. This corresponds to a 0 to 49% stenosis in the main left renal artery. The arcuate waveforms and resistive indices are elevated IMPRESSION: 1. The right renal artery is fairly well visualized. The left renal artery is only visualized in segments. 2. No sonographically significant stenosis is identified. 3. The renal parenchyma is thin and renal parenchyma is thin and echogenic. There are no solid renal masses, abnormal calcifications or hydronephrosis noted.
[2017-03-06] MEDS: Levalbuterol 0.63 MG/3 ML Inhal Soln UD IH PRN (10:24)
--- NOTE | 2017-03-06 11:20 | PN ---
DATE: 03/06/2017 SUBJECTIVE: The patient is chest pain free. PHYSICAL EXAMINATION VITAL SIGNS: Blood pressure is 168/77, heart rate is in the 90s. NECK: Negative JVD. LUNGS: Without rales or S1, S2. EXTREMITIES: Without edema. LABORATORY DATA: BUN and creatinine is back to baseline at 36 and 1.4, glucose is 260, hemoglobin is 10.3. IMPRESSION: 1. Stable post percutaneous transluminal coronary angioplasty and stent of an left anterior descending artery. 2. Status post non-ST elevation myocardial infarction. 3. Resolution of renal nephrotoxicity with back to baseline renal function. 4. Diabetes mellitus. 5. Hypertension. PLAN: Given these findings, the patient's renal function is back to baseline. There is no evidence of renal artery stenosis by renal artery duplex. From a cardiac perspective, the patient can be discharged. The patient should be on aspirin indefinitely and Plavix for least a year. Jaylon Nash MD
--- NOTE | 2017-03-06 14:02 | CP.PCM.PN ---
Subjective - Date & Time of Evaluation Date of Evaluation: 03/06/17 Time of Evaluation: 14:01 - Subjective Subjective: Follow up Nephrology Consultation: Assessment: Stable Acute Kidney Injury (N17.9) likely pre-renal state (as evident by much higher BUN, elevated bicarb, uric acid) and possibly contribution by IV contrast exposure, hemodynamic fluctuations Diabetic chronic Kidney Disease (E11.22) Hypertensive Chronic Kidney Disease (I12.9) Chronic Kidney Disease (N18.3) Stage 3 without proteinuria likely due to HTN Anemia (D64.9), HTN (I12.9) Hyponatremia, DM, CAD s/p stent, Hyperlipidemia, overweight ? Acute bronchitis Rt renal cyst, hypokalemia Plan No acute need for renal replacement therapy at this time. renal function improved and now close to baseline Hypertension control with meds as ordered. Patient not on ACEI/ARB due to ANTOINETTE. increased lopressor and increased hydralazine. will check renin/kayla and metanephrine, renal artery doppler (neg for MADHU) Monitor Input/Output, daily weights and renal function with basic metabolic panel on steroids for asthmatic bronchitis supplement electrolytes as needed Dose meds/antibiotics for improved GFR. Avoid fleets enema/magnesium based laxatives. Avoid nephrotoxins/NSAIDs/ iodinated contrast (unless needed emergently) Glycemic control Further work up/management as per primary team pt planned for d/c. stable from renal perspective Thanks for allowing me to participate in care of your patient. Will follow patient with you. Please call if any Qs. d/w team Dr Evaristo Blanchard Office: [phone] Chief Complaint; cough reason for consult ANTOINETTE HPI: Pt is a 81 F with long standing hx of diabetes Mellitus, hypertension , and also hyperlipidemia, CAD s/p stent, aware about CKD for last 1 year presented with complaints of SOB and was found to have pulmonary congestion which was managed with IV lasix. also underwent cardiac cath 03/01/17 which showed CAD required stent. renal consult for ANTOINETTE management Denies OTC/herbal meds or NSAIDs had recent iodinated contrast exposure. SBP has jonathon fluctuating ranging from 110 -200 mmHg c/o cough and wheezing. improved SOB Physical Examination: General Appearance: Comfortable, in no acute respiratory distress, co-operative . Vitals reviewed and noted as below Head; Atraumatic, normocephalic ENT: no ulcers no thrush. Tongue is midline. Oropharynx: no rash or ulcers. EYES: Pupils are equal, round and reactive to light accommodation. Eye muscles and extraocular movement intact. Sclera is anicteric. Neck; supple no lymphadenopathy, no thyromegaly or bruit Lungs: Increased respiratory rate/effort. Breath sounds bilateral equal and has b/l wheezing at bases, improved Heart: Normal rate. s1s2 normal. No rub or gallop. Extremities: no edema. No varicose veins. some non pitting puffing around ankle noted Neurological: Patient is alert, awake and oriented to person, place and time. No focal deficit. Strength bilateral appropriate and equal Skin: Warm and dry. Normal turgor. No rash. Palpitation: Normal elasticity for age Abdomen: Abdomen is soft. Bowel sounds +. There is no abdominal tenderness, no guarding/rigidity no organomegaly Psych: normal insight and normal affect/mood MSK: no joint tenderness or swelling. Digits and nails normal, no deformity : kidney or bladder not palpable Labs/imaging reviewed. Past medical history, past surgical history, family history, social history, allergy reviewed and noted as below Family hx: no hx of CKD. Rest non-contributory Work up: renal sono: rt renal 10 cm cyst Objective - Vital Signs/Intake and Output Vital Signs (last 24 hours): Temp Pulse Resp BP Pulse Ox 97.4 F L 77 20 163/67 H 97 03/06/17 12:00 03/06/17 12:00 03/06/17 06:00 03/06/17 12:00 03/06/17 06:00 Intake and Output: 03/06/17 03/06/17 06:59 18:59 Intake Total 240 Output Total 0 Balance 240 - Medications Medications: Current Medications Acetaminophen (Tylenol 325mg Tab) 650 mg PO Q6H PRN PRN Reason: TEMP>=99.5F Last Admin: 03/05/17 11:59 Dose: 650 mg Aspirin (Ecotrin) 81 mg PO DAILY [facility] Last Admin: 03/06/17 09:15 Dose: 81 mg Atorvastatin Calcium (Lipitor) 10 mg PO DIN [facility] Last Admin: 03/05/17 18:32 Dose: 10 mg Benzonatate (Tessalon Perles) 200 mg PO TID [facility] Last Admin: 03/06/17 13:05 Dose: 200 mg Clopidogrel Bisulfate (Plavix) 75 mg PO DAILY [facility] Last Admin: 03/06/17 09:14 Dose: 75 mg Guaifenesin/Dextromethorphan (Robitussin Dm) 5 ml PO Q4H [facility] Stop: 03/08/17 15:01 Last Admin: 03/06/17 13:05 Dose: 5 ml Hydralazine HCl (Apresoline) 10 mg IVP Q4 PRN PRN Reason: Systolic Blood Pressure Last Admin: 03/05/17 06:35 Dose: 10 mg Hydralazine HCl (Apresoline) 50 mg PO BID [facility] Last Admin: 03/06/17 13:01 Dose: Not Given Insulin Detemir (Levemir) 10 unit SC ACBD [facility] Last Admin: 03/06/17 08:12 Dose: 10 unit Insulin Human Regular (Humulin R Low) 0 units SC ACHS [facility] PRN Reason: Protocol Last Admin: 03/06/17 13:05 Dose: 4 units Isosorbide Mononitrate (Imdur) 60 mg PO DAILY [facility] Last Admin: 03/06/17 09:15 Dose: 60 mg Levalbuterol HCl (Xopenex) 0.63 mg IH [id number] [facility] Last Admin: 03/06/17 13:38 Dose: 0.63 mg Levalbuterol HCl (Xopenex) 0.63 mg IH Q2H PRN PRN Reason: Shortness of Breath Last Admin: 03/06/17 10:24 Dose: 0.63 mg Metoprolol Tartrate (Lopressor) 50 mg PO BID [facility] Last Admin: 03/06/17 09:15 Dose: 50 mg Pantoprazole Sodium (Protonix Ec Tab) 40 mg PO 0600 [facility] Last Admin: 03/06/17 05:10 Dose: 40 mg - Labs Labs: 03/06/17 05:30 03/06/17 05:30 PT 10.3 SECONDS (9.4-12.5) 03/01/17 00:09 INR 0.95 (0.93-1.08) 03/01/17 00:09 APTT 35.5 Seconds (25.1-36.5) 03/01/17 00:09
--- NOTE | 2017-03-06 15:52 | CP.PCM.PN ---
Subjective - Date & Time of Evaluation Date of Evaluation: 03/06/17 Time of Evaluation: 15:49 - Subjective Subjective: Viktoria Erickson, PGY1, Medicine Progress Note for Dr Richards: Patient seen and examined at bedside. No acute events overnight. Pt states that she is doing well. Has mild nonproductive cough, better with Robitussin. Denies SOB, nausea, vomiting, cp, diarrhea, abdominal pain, leg swelling. Objective - Vital Signs/Intake and Output Vital Signs (last 24 hours): Temp Pulse Resp BP Pulse Ox 97.4 F L 77 20 163/67 H 97 03/06/17 12:00 03/06/17 12:00 03/06/17 06:00 03/06/17 12:00 03/06/17 06:00 Intake and Output: 03/06/17 03/06/17 06:59 18:59 Intake Total 240 Output Total 0 Balance 240 - Medications Medications: Current Medications Acetaminophen (Tylenol 325mg Tab) 650 mg PO Q6H PRN PRN Reason: TEMP>=99.5F Last Admin: 03/05/17 11:59 Dose: 650 mg Aspirin (Ecotrin) 81 mg PO DAILY [facility] Last Admin: 03/06/17 09:15 Dose: 81 mg Atorvastatin Calcium (Lipitor) 10 mg PO DIN [facility] Last Admin: 03/05/17 18:32 Dose: 10 mg Benzonatate (Tessalon Perles) 200 mg PO TID [facility] Last Admin: 03/06/17 13:05 Dose: 200 mg Clopidogrel Bisulfate (Plavix) 75 mg PO DAILY [facility] Last Admin: 03/06/17 09:14 Dose: 75 mg Guaifenesin/Dextromethorphan (Robitussin Dm) 5 ml PO Q4H [facility] Stop: 03/08/17 15:01 Last Admin: 03/06/17 13:05 Dose: 5 ml Hydralazine HCl (Apresoline) 10 mg IVP Q4 PRN PRN Reason: Systolic Blood Pressure Last Admin: 03/05/17 06:35 Dose: 10 mg Hydralazine HCl (Apresoline) 50 mg PO BID [facility] Last Admin: 03/06/17 13:01 Dose: Not Given Insulin Detemir (Levemir) 10 unit SC ACBD [facility] Last Admin: 03/06/17 08:12 Dose: 10 unit Insulin Human Regular (Humulin R Low) 0 units SC ACHS [facility] PRN Reason: Protocol Last Admin: 03/06/17 13:05 Dose: 4 units Isosorbide Mononitrate (Imdur) 60 mg PO DAILY [facility] Last Admin: 03/06/17 09:15 Dose: 60 mg Levalbuterol HCl (Xopenex) 0.63 mg IH [id number] [facility] Last Admin: 03/06/17 13:38 Dose: 0.63 mg Levalbuterol HCl (Xopenex) 0.63 mg IH Q2H PRN PRN Reason: Shortness of Breath Last Admin: 03/06/17 10:24 Dose: 0.63 mg Metoprolol Tartrate (Lopressor) 50 mg PO BID [facility] Last Admin: 03/06/17 09:15 Dose: 50 mg Pantoprazole Sodium (Protonix Ec Tab) 40 mg PO 0600 [facility] Last Admin: 03/06/17 05:10 Dose: 40 mg - Labs Labs: 03/06/17 05:30 03/06/17 05:30 PT 10.3 SECONDS (9.4-12.5) 03/01/17 00:09 INR 0.95 (0.93-1.08) 03/01/17 00:09 APTT 35.5 Seconds (25.1-36.5) 03/01/17 00:09 - Additional Findings Additional findings: - Constitutional Appears: Non-toxic, No Acute Distress - Head Exam Head Exam: ATRAUMATIC, NORMAL INSPECTION, NORMOCEPHALIC - Eye Exam Eye Exam: EOMI, Normal appearance, PERRL Pupil Exam: NORMAL ACCOMODATION, PERRL - ENT Exam ENT Exam: Mucous Membranes Moist, Normal Exam - Neck Exam Neck exam: Positive for: Full Rom, Normal Inspection. Negative for: Lymphadenopathy, Meningismus, Tenderness, Thyromegaly - Respiratory Exam Respiratory Exam: CTA b/l, NORMAL BREATHING PATTERN. absent: Accessory Muscle Use, Chest Wall Tenderness, Prolonged Expiratory Phase, Rales, Rhonchi, Wheezes , Respiratory Distress, Stridor - Cardiovascular Exam Cardiovascular Exam: REGULAR RHYTHM, RRR, +S1, +S2. absent: Bradycardia, Tachycardia, Clicks, Diastolic murmur, Gallop, Irregular Rhythm, JVD, Rubs, +S4 , Systolic Murmur - GI/Abdominal Exam GI & Abdominal Exam: Normal Bowel Sounds, Soft. absent: Bruit, Diminished Bowel Sounds, Distended, Firm, Guarding, Hernia, Hyperactive Bowel Sounds, Hypoactive Bowel Sounds, Mass, Organomegaly, Pulsatile Mass, Rebound, Rigid, Tenderness - Extremities Exam Extremities exam: Positive for: full ROM, normal capillary refill, 1+ trace pedal edema b/l, pedal pulses present. Negative for: calf tenderness, joint swelling, tenderness - Back Exam Back exam: FULL ROM, NORMAL INSPECTION. absent: CVA tenderness (L), CVA tenderness (R), muscle spasm, paraspinal tenderness, rash noted, tenderness, vertebral tenderness - Neurological Exam Neurological exam: Alert, CN II-XII Intact, Oriented x3 - Psychiatric Exam Psychiatric exam: Normal Affect, Normal Mood - Skin Skin Exam: Dry, Intact, Normal Color, Warm Assessment and Plan - Assessment and Plan (Free Text) Assessment: 81 year old female with a past medical history significant for non-insulin dependent DM2, CAD s/p RCA stent placement in 07/13, HTN, HLD and CKD who presents with a chief complaint of progressive SOB, substernal chest pressure, and non-productive cough found to have NSTEMI s/p LAD CORNELIO stent, POD#5. Course complicated by contrast induced nephropathy, which is resolving. PT/OT eval recommends [facility] or TCU. Awaiting insurance authorization: 1. NSTEMI - trops elevated <0.01->0.09->0.10. - EKG showed no acute ST changes - Cardiology on board, appreciate recs. - Cardiac cath 03/01/16 showed EF 65-70%. 90% mid LAD stenosis, 1 drug eluting stent put in. - Echo 09/2016: showed EF 69%. LVH. - On ASA, lipitor 10, plavix 75, lasix 40, BB. - CXR shows improved CHF - Tele monitor 2. ANTOINETTE: likely contrast induced nephropathy, resolving: - BUN/Cr 44/1.8--> 78/2.6 ->34/1.4 - Nephrology consulted. appreciated recs. - Pt has a history of CKD. Son reports patient has baseline creatinine of 1.8 and GFR of 39 - renal US showed large 10 cm simple cyst on lower pole of right kidney. no hydronephrosis. 3. Hypertension - Hydralazine 50 mg BID -Hydralazine 10mg IVP Q4H PRN for SBP >180 -Continue metoprolol 4. DM2 -SSI and Accuchecks ACHS -Heart Healthy Carbohydrate Consistent Diet 5. History of CAD s/p RCA stent -Continue home ASA, Nitro and Plavix 6. History of HLD -Continue home Lipitor 7. GI Prophylaxis: Protonix DVT Prophylaxis: SCD's Case and plan was reviewed and discussed in detail with Dr Richards. Viktoria Erickson, PGY1
[2017-03-07] MEDS: Levalbuterol 0.63 MG/3 ML Inhal Soln UD IH SCH ×4 (01:54→20:44)
--- NOTE | 2017-03-07 02:27 | DS ---
The patient is seen ambulating in room 275, bed 2 with physical therapist. The patient's overall nurse's notes were reviewed. The patient refused bed alarm. Tolerated breakfast. The patient ambulated with physical therapist. PHYSICAL EXAMINATION: VITAL SIGNS: T-max 98.1. Telemetry shows sinus rhythm, heart rate 85, 89, 99, 94; blood pressure 168/77, 175/82, 149/54; respiration 20, O2 sat 97%. INTAKE AND OUTPUT: Not documented. HEAD: Normocephalic, atraumatic. HEENT: Shows pinkish pale conjunctivae. No audible carotid bruit. CHEST: Kyphosis. LUNGS: Shows no rales, crackles, or wheezing. Occasional rhonchi noted upper lung matute. CARDIOVASCULAR: S1, S2, regular rhythm. Questionable soft systolic murmur left sternal border, right second intercostal space, left second intercostal space. ABDOMEN: Soft. Positive bowel sounds. Slightly protuberant. GENITALIA: Female. RECTAL: Deferred. EXTREMITIES: Shows no pitting edema, no calf numbness, no Darrian's signs. NEUROLOGIC: The patient is alert, awake, responsive, is able to move upper lower extremity without assistance. GAIT: The patient is ambulating with physical therapy. DIAGNOSTICS: On 03/06/2017; WBC 5.9, hemoglobin/hematocrit 10.3/31.1, platelets 256. Granulocytes 85% segs. Sodium 133, potassium 4.5, chloride 95, CO2 of 27, anion gap 16, BUN 36, creatinine 1.4, GFR 44, glucose 260 and 284, calcium 9.4, magnesium 1.7, BNP is 5510. Renal artery Doppler was done which does not show sonographically significant stenosis. The patient was seen by scientific database curator. The patient was cleared for discharge by the scientific database curator. And the patient was advised to be on aspirin indefinitely and Plavix for 1 year. FINAL IMPRESSION, PLAN, AND DISCHARGE DIAGNOSES: 1. Status post successful angioplasty and stent placement of the 90% stenosis of the mid left anterior descending with a drug-eluting stent placement. 2. Hypertension. 3. Normocytic anemia. 4. Granulocytosis. 5. Leukocytosis with granulocytosis. 6. Hyperglycemia. 7. Hyponatremia. 8. Hypokalemia. 9. Elevated thyroxine level, etiology undetermined. 10. Proteinuria. 11. Acute kidney injury (resolved). 12. Deconditioning. 13. Coronary artery disease. 14. Non-ST elevation myocardial infarction. PLAN: At this time, the patient has been cleared for discharge from Cardiology and Nephrology prospective. The patient is discharged on aspirin 81 mg daily, Tessalon Perles 200 three times a day, Amaryl 4 mg daily, hydralazine 50 mg twice a day, Tradjenta 5 mg daily, metformin 500 mg daily, Lopressor 50 mg twice a day, Strovite 1 capsule daily, Protonix 40 mg daily, Imdur 60 mg daily, Lipitor daily, and Plavix 75 mg daily. The patient is to be discharged to subacute rehab for Transitional Care Unit, if accepted. Otherwise, the patient is to be discharged home with A Home Health aide, and PT. Follow up with PMD, Dr. Moise Zee within 1 week. The patient's discharge medications as per updated and ambulatory orders in the new scripts. Dictated and electronically signed, not read. Francesco Richards MD
[2017-03-07] MEDS: guaiFENesin DM 100 mg-10 mg/5 ml UD PO SCH ×6 (03:00→23:00)
[2017-03-07] MEDS: Pantoprazole 40 mg EC Tab PO SCH (05:31)
[2017-03-07 06:13] LABS: BASO # 0.03 K/mm3 (0.0-2.0); BASO % 0.3 % (0.0-3.0); EOS # 0.1 (0.0-0.7); EOS % 0.7 % (1.5-5.0); GRAN # 7.12 (1.4-6.5); GRAN % 78.3 % (50.0-68.0); HEMOGLOBIN 10.4 g/dL (12.0-16.0); LYMPH # 1.2 (1.2-3.4); LYMPH % 13.1 % (22.0-35.0); MEAN CORPUSCULAR HEMOGLOBIN 31.3 pg (25.0-35.0); MEAN CORPUSCULAR HGB CONC 33.3 g/dl (31.0-37.0); MEAN PLATELET VOLUME 8.6 fl (7.0-11.0); MONO # 0.7 (0.1-0.6); MONO % 7.6 % (1.0-6.0); RBC 3.32 10^6/uL (3.5-6.1); RED CELL DISTRIBUTION WIDTH 12.6 % (11.5-14.5); WHITE BLOOD COUNT 9.1 10^3/ul (4.5-11.0)
[2017-03-07 06:39] LABS: ALB/GLOB RATIO 1.3 (1.1-1.8); ALBUMIN 3.6 g/dL (3.0-4.8); CALCIUM 9.5 mg/dL (8.4-10.5); MAGNESIUM 1.4 mg/dL (1.7-2.2)
[2017-03-07 06:42] LABS: BILIRUBIN,DIRECT 0.3 mg/dL (0.0-0.4)
[2017-03-07] MEDS: Insulin Reg-LOW-Coverage SC SCH ×4 (08:52→23:24)
[2017-03-07] MEDS: Insulin Detemir 100 units/ml Vial (Levemir) SC SCH ×2 (08:53→17:41)
[2017-03-07] MEDS: Levalbuterol 0.63 MG/3 ML Inhal Soln UD IH PRN (11:29)
[2017-03-07] MEDS ORDERED: Magnesium Sulfate 2 GM in Sodium Chloride 0.9% 100 ML IVPB ONE (12:09)
--- NOTE | 2017-03-07 14:53 | CP.PCM.PN ---
Subjective - Date & Time of Evaluation Date of Evaluation: 03/07/17 Time of Evaluation: 14:52 - Subjective Subjective: Follow up Nephrology Consultation: Assessment: Stable Acute Kidney Injury (N17.9) likely pre-renal state (as evident by much higher BUN, elevated bicarb, uric acid) and possibly contribution by IV contrast exposure, hemodynamic fluctuations Diabetic chronic Kidney Disease (E11.22) Hypertensive Chronic Kidney Disease (I12.9) Chronic Kidney Disease (N18.3) Stage 3 without proteinuria likely due to HTN Anemia (D64.9), HTN (I12.9) Hyponatremia, DM, CAD s/p stent, Hyperlipidemia, overweight ? Acute bronchitis Rt renal cyst, hypokalemia Plan No acute need for renal replacement therapy at this time. renal function improved and now close to baseline Hypertension control with meds as ordered. Patient not on ACEI/ARB due to ANTOINETTE, will consider to introduce it as outpt. increased lopressor and increased hydralazine. will check renin/kayla and metanephrine, renal artery doppler (neg for MADHU) Monitor Input/Output, daily weights and renal function with basic metabolic panel on steroids for asthmatic bronchitis supplement electrolytes as needed Dose meds/antibiotics for improved GFR. Avoid fleets enema/magnesium based laxatives. Avoid nephrotoxins/NSAIDs/ iodinated contrast (unless needed emergently) Glycemic control Further work up/management as per primary team pt planned for d/c to [facility]. stable from renal perspective Thanks for allowing me to participate in care of your patient. Will follow patient with you. Please call if any Qs. d/w team and son bedside Dr Evaristo Blanchard Office: [phone] Chief Complaint; cough reason for consult ANTOINETTE HPI: Pt is a 81 F with long standing hx of diabetes Mellitus, hypertension , and also hyperlipidemia, CAD s/p stent, aware about CKD for last 1 year presented with complaints of SOB and was found to have pulmonary congestion which was managed with IV lasix. also underwent cardiac cath 03/01/17 which showed CAD required stent. renal consult for ANTOINETTE management Denies OTC/herbal meds or NSAIDs had recent iodinated contrast exposure. SBP has jonathon fluctuating ranging from 110 -200 mmHg c/o cough feels improved SOB Physical Examination: General Appearance: Comfortable, in no acute respiratory distress, co-operative . Vitals reviewed and noted as below Head; Atraumatic, normocephalic ENT: no ulcers no thrush. Tongue is midline. Oropharynx: no rash or ulcers. EYES: Pupils are equal, round and reactive to light accommodation. Eye muscles and extraocular movement intact. Sclera is anicteric. Neck; supple no lymphadenopathy, no thyromegaly or bruit Lungs: Increased respiratory rate/effort. Breath sounds bilateral equal and improved wheezing Heart: Normal rate. s1s2 normal. No rub or gallop. Extremities: no edema. No varicose veins. some non pitting puffing around ankle noted Neurological: Patient is alert, awake and oriented to person, place and time. No focal deficit. Strength bilateral appropriate and equal Skin: Warm and dry. Normal turgor. No rash. Palpitation: Normal elasticity for age Abdomen: Abdomen is soft. Bowel sounds +. There is no abdominal tenderness, no guarding/rigidity no organomegaly Psych: normal insight and normal affect/mood MSK: no joint tenderness or swelling. Digits and nails normal, no deformity : kidney or bladder not palpable Labs/imaging reviewed. Past medical history, past surgical history, family history, social history, allergy reviewed and noted as below Family hx: no hx of CKD. Rest non-contributory Work up: renal sono: rt renal 10 cm cyst Objective - Vital Signs/Intake and Output Vital Signs (last 24 hours): Temp Pulse Resp BP Pulse Ox 98 F 83 19 173/91 H 97 03/07/17 10:15 03/07/17 12:26 03/07/17 10:15 03/07/17 12:26 03/07/17 10:15 Intake and Output: 03/07/17 03/07/17 06:59 18:59 Intake Total 480 Output Total 0 Balance 480 - Medications Medications: Current Medications Acetaminophen (Tylenol 325mg Tab) 650 mg PO Q6H PRN PRN Reason: TEMP>=99.5F Last Admin: 03/05/17 11:59 Dose: 650 mg Aspirin (Ecotrin) 81 mg PO DAILY [facility] Last Admin: 03/07/17 09:17 Dose: 81 mg Atorvastatin Calcium (Lipitor) 10 mg PO DIN [facility] Last Admin: 03/06/17 17:58 Dose: 10 mg Benzonatate (Tessalon Perles) 200 mg PO TID [facility] Last Admin: 03/07/17 14:43 Dose: 200 mg Clopidogrel Bisulfate (Plavix) 75 mg PO DAILY [facility] Last Admin: 03/07/17 09:17 Dose: 75 mg Guaifenesin/Dextromethorphan (Robitussin Dm) 5 ml PO Q4H [facility] Stop: 03/08/17 15:01 Last Admin: 03/07/17 14:43 Dose: 5 ml Hydralazine HCl (Apresoline) 10 mg IVP Q4 PRN PRN Reason: Systolic Blood Pressure Last Admin: 03/07/17 12:26 Dose: 10 mg Hydralazine HCl (Apresoline) 50 mg PO BID [facility] Last Admin: 03/07/17 09:17 Dose: 50 mg Insulin Detemir (Levemir) 10 unit SC ACBD [facility] Last Admin: 03/07/17 08:53 Dose: 10 unit Insulin Human Regular (Humulin R Low) 0 units SC ACHS [facility] PRN Reason: Protocol Last Admin: 03/07/17 12:12 Dose: 4 units Isosorbide Mononitrate (Imdur) 60 mg PO DAILY [facility] Last Admin: 03/07/17 09:17 Dose: 60 mg Levalbuterol HCl (Xopenex) 0.63 mg IH [id number] [facility] Last Admin: 03/07/17 13:32 Dose: 0.63 mg Levalbuterol HCl (Xopenex) 0.63 mg IH Q2H PRN PRN Reason: Shortness of Breath Last Admin: 03/07/17 11:29 Dose: 0.63 mg Metoprolol Tartrate (Lopressor) 50 mg PO BID [facility] Last Admin: 03/07/17 09:17 Dose: 50 mg Pantoprazole Sodium (Protonix Ec Tab) 40 mg PO 0600 [facility] Last Admin: 03/07/17 05:31 Dose: 40 mg - Labs Labs: 03/07/17 05:30 03/07/17 05:30 PT 10.3 SECONDS (9.4-12.5) 03/01/17 00:09 INR 0.95 (0.93-1.08) 03/01/17 00:09 APTT 35.5 Seconds (25.1-36.5) 03/01/17 00:09
[2017-03-07] MEDS ORDERED: Bisacodyl 5mg EC Tab PO ONE (15:26)
--- NOTE | 2017-03-07 20:36 | DS ---
FINAL PROGRESS NOTE AND DISCHARGE SUMMARY HISTORY OF PRESENT ILLNESS: The patient's discharged yesterday was canceled because of the patient's family requesting a subacute rehab placement. At present, the patient is still awaiting for subacute rehab approval from the insurance. The patient was seen in room 275, bed 2. The patient was seen out of bed to chair. Overnight nurse's notes were reviewed. The patient's telemetry was discontinued. PHYSICAL EXAMINATION: VITAL SIGNS: T-max 98.7, heart rate 99, 82, and 110. Blood pressure overnight was elevated in the last 24 hours 75/82, 163/67, 189/86, 201/106, 217/106 and 149/68, respirations 19 to 20, O2 saturation 97%. INTAKE AND OUTPUT: Not documented correctly. HEAD: Normocephalic, atraumatic. HEENT: Shows pinkish conjunctivae. Anicteric sclerae. NECK: Questionable soft carotid bruit. No jugular venous distention. CHEST: Kyphosis. LUNGS: Shows positive rhonchi. Questionable fine crackles at the bases. Decreased breath sounds at the left base. CARDIOVASCULAR: S1, S2. Questionable soft systolic murmur, left sternal border, left second intercostal space, right second intercostal space. ABDOMEN: Protuberant. Positive bowel sounds. GENITALIA: Female. RECTAL: Deferred. EXTREMITIES: Shows no pitting edema, no calf tenderness, no Darrian's signs. NEUROLOGIC: The patient is alert, awake, responsive, is able to move upper and lower extremity without assistance. MUSCULOSKELETAL: Shows body mass index of 30. DIAGNOSTICS: On 03/07/2017, WBC 9.1, hemoglobin/hematocrit 10.4/31.2, platelets 255. Granulocytes 78% segs. Chemistry shows sodium 131, potassium 4.3, chloride 93, CO2 of 29, anion gap 13, BUN 32, creatinine 1.4, GFR 36, glucose 259, calcium 9.1, magnesium 1.4. BNP is elevated at 5420. Renal artery Doppler noted. There was no sonographically significant stenosis. FINAL IMPRESSION, PLAN, AND DISCHARGE DIAGNOSES: 1. Acute non-ST elevation myocardial infarction. 2. Status post cardiac catheterization. 3. Left ventricular ejection fraction of 65-70%. 4. Patent stent in the mid right coronary artery with diffuse intimal irregularities. 5. An 80-90% stenosis of the mid left anterior descending artery after the take off of the diagonal. 6. Status post emergency angioplasty of the 90% mid left anterior descending stenosis with drug-eluting stent. 7. Hypertension. 8. Tachycardia. 9. Questionable bronchitis. 10. Normocytic anemia. 11. Leukocytosis with granulocytosis. 12. Hyponatremia. 13. Underlying chronic kidney disease, stage III. 14. Hyperuricemia. 15. Diabetes mellitus with hyperglycemia. 16. Questionable and possible right-sided diastolic congestive heart failure with elevated brain natriuretic peptide. 17. Proteinuria. 18. Glycosuria. 19. Microscopic hematuria. 20. Obesity with elevated body mass index of 30. PLAN: At this time, the patient has been cleared for discharge by Cardiology, Nephrology, Medicine. Social work is still awaiting for subacute rehab approval by the insurance as per the patient's family request. MEDICATIONS: The patient's discharge medications at present will be aspirin 81 mg daily, Lipitor 10 mg daily, Tessalon Perles 200 three times a day, Plavix 75 mg daily, Amaryl 4 mg daily, hydralazine 50 mg twice a day, Imdur 60 mg daily, Tradjenta 5 mg daily, Fortamet 500 mg daily, Lopressor 50 mg twice a day, Strovite 1 capsule daily, Protonix 40 mg daily. The patient's present medications as of today; hydralazine 50 mg twice a day, aspirin 81 mg daily, Imdur 60 mg daily. The patient was given Lasix 40 IV x1 dose, Levemir 10 units a.c. breakfast and dinner, Lipitor 10 mg daily, Lopressor 50 mg twice a day, magnesium sulfate 2 g x1 dose IV, Plavix 75 mg daily, Protonix 40 mg daily, Tessalon Perles 200 three times a day, Tylenol 650 q. 6 hours p.r.n., Xopenex nebulizer every 6 hours around the clock q. 2 hours p.r.n. The patient has been ordered SCDs, SHANITA stockings, Physical Therapy, Occupational Therapy. At present, the patient is cleared for discharge. The patient is awaiting insurance approval for subacute rehab. Dictated and electronically signed, not read. Signing off, Francesco Maurice, MD [facility] # [id number]
[2017-03-08] MEDS: Levalbuterol 0.63 MG/3 ML Inhal Soln UD IH SCH ×3 (01:43→14:31)
[2017-03-08] MEDS: guaiFENesin DM 100 mg-10 mg/5 ml UD PO SCH ×2 (03:00→06:34)
[2017-03-08 03:06] LABS: ALDO/PRA RATIO 3.2 Ratio (0.9-28.9)
[2017-03-08] MEDS: Pantoprazole 40 mg EC Tab PO SCH (06:34)
[2017-03-08] MEDS: Insulin Reg-LOW-Coverage SC SCH (08:45)
[2017-03-08 08:58] VITALS: BP 172/75; PULSE 67; RESP 18; TEMP 99.3; O2SAT 98
[2017-03-08] MEDS: Insulin Detemir 100 units/ml Vial (Levemir) SC SCH (10:21)
[2017-03-08] MEDS: Levalbuterol 0.63 MG/3 ML Inhal Soln UD IH PRN (11:42)
--- NOTE | 2017-03-09 10:59 | DS ---
HISTORY OR PRESENT ILLNESS: The patient is seen in room 573, bed 2. Overnight nurses' notes were reviewed. The patient had no distress. The patient slept soundly according to the nurses' notes. The patient is complaining of some cough right now. The patient is lying in the bed in room 573, bed 2. The patient does not appear to be in any distress. PHYSICAL EXAMINATION: VITAL SIGNS: T-max 98.7, heart rate 67-83, blood pressure 172/75, 160/83, respirations 18, O2 sat 98. INTAKE AND OUTPUT: Not documented. HEENT: Head normocephalic, atraumatic. [place] conjunctivae. Anicteric sclerae. No oropharyngeal lesions. NECK: No jugular venous distention. No audible carotid bruit. CHEST: Kyphosis. LUNGS: Occasional rhonchi. Very soft fine crepitus, right more than the left. CARDIOVASCULAR: S1, S2, regular rhythm. Questionable soft systolic murmur, right second intercostal space, left second intercostal space, left sternal border. ABDOMEN: Soft, protuberant. Positive bowel sounds. GENITALIA: Female. RECTAL: Examination is deferred. No hepatosplenomegaly noted. No costovertebral angle tenderness. EXTREMITIES: No pitting edema. No calf numbness. No Homans' sign. No clubbing. No cyanosis. VASCULAR: Palpable pulses. MUSCULOSKELETAL: Examination shows a body mass index of 30. NEUROLOGIC: The patient is alert, awake, responsive. Cranial nerves II through XII intact. No gross deficit noted. Gait examination not tested. The patient has been seen by the physical therapist. Their recommendation was subacute rehab. The patient accepted to [facility]. The patient has been cleared for discharge by all subspecialty since the last two days. IMPRESSION AND PLAN 1. Acute csw-QW-kruwdoaag myocardial infarction. 2. Acute coronary syndrome. 3. Status post emergency angioplasty of the 90% mid left anterior descending stenosis with drug-eluting stent. 4. Uncontrolled hypertension. 5. Obesity with elevated body mass index. 6. Transient hypoxemia. 7. Tachycardia. 8. Normocytic anemia. 9. Hyponatremia. 10. Status post acute kidney injury. 11. Underlying chronic kidney disease stage III. 12. Hyperglycemia with type 2 diabetes mellitus with hemoglobin A1c of 6.9. 13. Hypomagnesemia. 14. Hypokalemia. 15. Right-sided diastolic congestive heart failure with elevated BNP. 16. Secondary hyperparathyroidism with elevated PTH. 17. Hypomagnesemia. 18. Proteinuria. 19. Microscopic hematuria. 20. Gait dysfunction. 21. Deconditioning. 22. Status post acute kidney injury with prerenal kidney injury, probably secondary to contrast nephropathy and hemodynamic fluctuations. 23. Diabetic and hypertensive chronic kidney disease. 24. Chronic kidney disease stage III without proteinuria, probably secondary to hypertension. 25. Anemia. 26. Hypokalemia. 27. Right renal cyst. PLAN: At this time, the patient has been accepted to [facility]. The patient will be discharged to [facility]. CURRENT MEDICATIONS: The patient's current medications as per today are; 1. Hydralazine 50 mg twice a day, 2. Hydralazine 10 mg IV q. four p.r.n. 3. Aspirin 81 mg daily. 4. Humulin, low-dose sliding scale coverage a.c. and h.s. 5. Imdur 60 mg daily. 6. The patient was given one dose of Lasix 20 x1. 7. Levemir 10 units a.c. breakfast and dinner. 8. Lipitor 10 mg daily. 9. Lopressor 50 mg twice a day. 10. Plavix 75 mg daily. 11. Protonix 40 mg daily. 12. Tessalon Perles 200 three times a day. 13. Tylenol 650 q. 6 p.r.n. 14. Xopenex nebulizer every 6 hours fnshja-gse-qwdyj and q.2h. p.r.n. Since the patient is going to go to the rehab, the patient's medications will be continued as per the MAR of today. Upon discharge from subacute rehab, the patient can resume the home medications. At present, the patient's medications are as follows; 1. Tylenol 650 q. six p.r.n. 2. Ecotrin 81 mg daily. 3. Lipitor 10 mg daily. 4. Tessalon Perles 200 three times a day. 5. Plavix 75 mg daily. 6. The patient is to resume Amaryl 4 mg daily when returning home. 7. The patient is on Robitussin-DM 5 mL q.4 p.r.n. 8. The patient is on hydralazine 50 mg twice a day. 9. The patient is presently on Levemir 10 units breakfast and dinner and Humulin low-dose sliding scale coverage a.c. and h.s. 10. Imdur 60 mg daily. 11. Xopenex nebulizer 0.63 mg every 6 hours qamruf-bhv-cozpl q.2h. p.r.n. 12. The patient will resume Tradjenta 5 mg daily when the patient returns home. 13. The patient will resume Fortamet 500 mg daily when returns home. 14. The patient is to continue Lopressor 50 mg twice a day, Strovite 1 capsule daily, Protonix 40 mg daily. The patient has been cleared for discharge. The patient is accepted to [facility]. Time spent in the entire discharge process more than 45 minutes. Francesco Richards MD
== END 2017-03-08 14:51 | DRG 246 ==
LOC: ED 23:37 → ERH 03-01 05:46 → UNDOADMIN 03-01 05:46 → CATH 03-01 10:02 → 2RSO 03-01 11:33 → 2A 03-07 08:20 → 5RSO 03-07 19:38
PROVIDERS: ADMIT Internal Medicine; ATTEND Internal Medicine
PROC: 027034Z Dilation of Coronary Artery, One Artery with Drug-eluting Intraluminal Device, Percutaneous Approach (ICD-10-PCS; principal; 2017-03-01)
PROC: 4A023N7 Measurement of Cardiac Sampling and Pressure, Left Heart, Percutaneous Approach (ICD-10-PCS; 2017-03-01)
PROC: B211YZZ Fluoroscopy of Multiple Coronary Arteries using Other Contrast (ICD-10-PCS; 2017-03-01)
PROC: B215YZZ Fluoroscopy of Left Heart using Other Contrast (ICD-10-PCS; 2017-03-01)
PROC: 3E0F7GC Introduction of Other Therapeutic Substance into Respiratory Tract, Via Natural or Artificial Opening (ICD-10-PCS; 2017-03-02)
DX: I21.4 Non-ST elevation (NSTEMI) myocardial infarction (principal); I50.31 Acute diastolic (congestive) heart failure; I25.10 Atherosclerotic heart disease of native coronary artery without angina pectoris; N17.9 Acute kidney failure, unspecified; E87.1 Hypo-osmolality and hyponatremia; I13.0 Hypertensive heart and chronic kidney disease with heart failure and stage 1 through stage 4 chronic kidney disease, or unspecified chronic kidney disease; E11.65 Type 2 diabetes mellitus with hyperglycemia; E11.22 Type 2 diabetes mellitus with diabetic chronic kidney disease; D64.9 Anemia, unspecified; E83.42 Hypomagnesemia; N28.1 Cyst of kidney, acquired; E87.6 Hypokalemia; N18.3 Chronic kidney disease, stage 3 (moderate); E78.00 Pure hypercholesterolemia, unspecified; I87.2 Venous insufficiency (chronic) (peripheral); N14.1 Nephropathy induced by other drugs, medicaments and biological substances; T50.8X5A Adverse effect of diagnostic agents, initial encounter; E79.0 Hyperuricemia without signs of inflammatory arthritis and tophaceous disease; E66.9 Obesity, unspecified; R31.29 Other microscopic hematuria; Z68.29 Body mass index [BMI] 29.0-29.9, adult; Z95.5 Presence of coronary angioplasty implant and graft

== ENCOUNTER 2017-05-31 07:08 | Inpatient (IN) | payer MEDICARE, MEDICAID ==
[2017-05-31 07:14] VITALS: BMI 30.9
--- NOTE | 2017-05-31 07:58 | ED PDOC ---
Arrival/HPI - General Chief Complaint: Shortness Of Breath Time Seen by Provider: 05/31/17 07:14 Historian: Patient, Family ([id number]-[id number]) - History of Present Illness Narrative History of Present Illness (Text): 05/31/17 07:33 A 82 year old female, whose past medical history includes hypertension, non- insulin dependent diabetes, [address] (1st in [facility], [facility]; 2nd by Dr. Nash), migraine, and arthritis, whom is accompanied by [id number] ( translating for patient; offered translation services but pt prefers daughter-in -law), presents to the emergency department complaining of shortness of breath and swollen feet. Patient's meyfamyw-hc-lli reports visiting Dr. Nash yesterday for evaluation and Dr. Nash noticed patient's feet was swollen. Recommended patient visit ER for evaluation. Patient also arrives for shortness of breath that has been on and off according to [id number]-[id number] and occurs at random. It is also mentioned 2 months ago patient had fluid in lungs. Patient denies any other complaints at this time. Patient has had no recent surgeries. Takes Aspirin ever other day, and has been given sleep aid medication by PMD. PMD: Dr. Moise Zee Labor Relations Manager: Dr. Nash Symptom Onset: Gradual Symptom Course: Unchanged Past Medical History - Provider Review Nursing Documentation Reviewed: Yes - Infectious Disease Hx of Infectious Diseases: None - Tetanus Immunization Tetanus Immunization: Unknown - Reproductive Menopause: Yes - Cardiac Hx Hypertension: Yes - Neurological Hx Migraine: Yes - HEENT Hx HEENT Disorder: Yes (eyeglasses) - Renal Hx Renal Disorder: Yes - Endocrine/Metabolic Hx Diabetes Mellitus Type 2: Yes - Musculoskeletal/Rheumatological Hx Arthritis: Yes - Psychiatric Hx Substance Use: No - Surgical History Hx Cardiac Catheterization: Yes (03/01/17) Hx Coronary Stent: Yes (ptca with stent 06/2016) Other/Comment: cardiac cath 03/01/17 - Anesthesia Hx Anesthesia Reactions: No Hx Malignant Hyperthermia: No Family/Social History - Physician Review Nursing Documentation Reviewed: Yes Family/Social History: No Known Family HX Smoking Status: Never Smoked Hx Alcohol Use: No Hx Substance Use: No Allergies/Home Meds Allergies/Adverse Reactions: Allergies No Known Allergies Allergy (Verified 02/28/17 23:48) Home Medications: Home Meds Medication Instructions Recorded Confirmed Aspirin [Ecotrin] 81 mg PO DAILY 10/13/16 05/31/17 Clopidogrel [Plavix] 75 mg PO DAILY 10/13/16 05/31/17 Metformin HCl [Fortamet] 500 mg PO DAILY 10/13/16 05/31/17 Glimepiride [amaRYL] 4 mg PO DAILY 03/01/17 05/31/17 Linagliptin [Tradjenta] 5 mg PO DAILY 03/01/17 05/31/17 Alendronate Sodium [Binosto] 70 mg PO RENY 05/31/17 05/31/17 Calcium Citrate/Vitamin D2 1 tab PO RENY 05/31/17 05/31/17 [Calcium with Vit D Tablet] Mv,Min10/Folic Acid/D3/Ala/Lut 1 tab PO DAILY 05/31/17 05/31/17 [Strovite [place]] amLODIPine [Norvasc] 5 mg PO DAILY 05/31/17 05/31/17 hydrALAZINE [Apresoline] 100 mg PO BID 05/31/17 05/31/17 Review of Systems - Physician Review All systems were reviewed & negative as marked: Yes - Review of Systems Constitutional: absent: Fevers, Night Sweats Respiratory: SOB. absent: Cough Gastrointestinal: absent: Abdominal Pain, Diarrhea, Nausea, Vomiting Musculoskeletal: Other (lower extremity swelling) Physical Exam Vital Signs Reviewed: Yes Vital Signs Temp Pulse Resp BP Pulse Ox 05/31/17 09:17 65 20 146/67 97 05/31/17 08:07 151/57 H 05/31/17 07:10 20 05/31/17 07:08 97.8 F 67 20 151/57 H 97 Temperature: Afebrile Blood Pressure: Hypertensive Pulse: Regular Respiratory Rate: Normal Appearance: Positive for: Well-Appearing Pain Distress: None Mental Status: Positive for: Alert and Oriented X 3 - Systems Exam Neck: Present: Normal Range of Motion. No: JVD Respiratory/Chest: Present: Other (crackles) Cardiovascular: Present: Regular Rate and Rhythm, Normal S1, S2. No: Murmurs Abdomen: No: Tenderness, Distention, Peritoneal Signs Lower Extremity: Present: Edema, Neurovascularly Intact Neurological: Present: GCS=15, CN II-XII Intact, Speech Normal Skin: Present: Warm, Dry, Normal Color. No: Rashes Psychiatric: Present: Alert, Oriented x 3, Normal Insight, Normal Concentration Medical Decision Making ED Course and Treatment: 05/31/17 07:37 Impression: 82 year old female with shortness of breath. Physical exam shows crackles; lower extremity positive edema. Differential Diagnosis included but are not limited to: CHF Exacerbation vs. ACS Plan: -- EKG -- Chest X-ray -- Labs -- Urinalysis -- Lasix -- Reassess and disposition Prior Visits: Notes and results from previous visits were reviewed. Patient was last seen in the emergency department on 02/28/2017 for shortness of breath. Patient was admitted. Progress Notes: EKG: Ordered, reviewed, and independently interpreted the EKG. Rate : 70 BPM Rhythm : NSR Interpretation : No ST-segment elevations or depressions, no T-wave inversions, normal intervals. Comparison : No previous EKG for comparison. 05/31/17 08:[address] Bennett, whom has agreed to tele observation for CHF. Case discussed with Dr. Nash who states that they have been trying to treat her CHF as outpatient will most likely now need some IV lasix. 05/31/2017 09:13 Chest X-ray IMPRESSION: No active disease. Dictator: David Harry MD Reassessment Condition: Improving,but remains with symptoms - Lab Interpretations Lab Results: 05/31/17 08:00 05/31/17 08:00 Lab Results 05/31/17 08:00: Sodium 137, Potassium 4.1, Chloride 99, Carbon Dioxide 30, Anion Gap 12, BUN 18, Creatinine 1.3 H, Est GFR ( Amer) 48, Est GFR (Non- Af Amer) 39, Random Glucose 131 H, Calcium 10.2, Lactate Dehydrogenase 379, Total Creatine Kinase 36, Troponin I < 0.01 D, NT-Pro-B Natriuret Pep 893 H 05/31/17 08:00: WBC 5.4 D, RBC 3.42 L, Hgb 10.3 L, Hct 30.8 L, MCV 90.1 D, MCH 30.1, MCHC 33.4, RDW 13.2, Plt Count 313, MPV 8.1, Gran % 77.7 H, Lymph % ( Auto) 11.3 L, [place] % (Auto) 9.0 H, Eos % (Auto) 1.8, Baso % (Auto) 0.2, Gran # 4.21, Lymph # (Auto) 0.6 L, [place] # (Auto) 0.5, Eos # (Auto) 0.1, Baso # (Auto) 0.01 I have reviewed the lab results: Yes - RAD Interpretation Radiology Orders: 05/31/17 07:38 CHEST PORTABLE [RAD] Stat - Medication Orders Current Medication Orders: Discontinued Medications Aspirin (Aspirin Chewable) 162 mg PO STAT STA Stop: 05/31/17 08:01 Last Admin: 05/31/17 08:05 Dose: 162 mg Furosemide (Lasix) 40 mg IVP STAT STA Stop: 05/31/17 07:38 Last Admin: 05/31/17 08:07 Dose: 40 mg MAR Blood Pressure Document 05/31/17 08:07 SRE (Rec: 05/31/17 08:07 SRE [id number]) Blood Pressure Blood Pressure (100/60-150/90) 151/57 IVP Administration Document 05/31/17 08:07 SRE (Rec: 05/31/17 08:07 SRE [id number]) Charges for Administration # of IVP Administrations 1 - Scribe Statement The provider has reviewed the documentation as recorded by the Clint Parekh Provider Scribe Attestation: All medical record entries made by the Scribdave were at my direction and personally dictated by me. I have reviewed the chart and agree that the record accurately reflects my personal performance of the history, physical exam, medical decision making, and the department course for this patient. I have also personally directed, reviewed, and agree with the discharge instructions and disposition. Disposition/Present on Arrival - Present on Arrival Any Indicators Present on Arrival: No History of DVT/PE: No History of Uncontrolled Diabetes: No Urinary Catheter: No History of Decub. Ulcer: No History Surgical Site Infection Following: None - Disposition Have Diagnosis and Disposition been Completed?: Yes Diagnosis: CHF (congestive heart failure) Disposition: HOSPITALIZED Disposition Time: 08:41 Patient Plan: Observation Condition: GUARDED
[2017-05-31 08:10] LABS: BASO # 0.01 K/mm3 (0.0-2.0); BASO % 0.2 % (0.0-3.0); EOS # 0.1 (0.0-0.7); EOS % 1.8 % (1.5-5.0); GRAN # 4.21 (1.4-6.5); GRAN % 77.7 % (50.0-68.0); HEMOGLOBIN 10.3 g/dL (12.0-16.0); LYMPH # 0.6 (1.2-3.4); LYMPH % 11.3 % (22.0-35.0); MEAN CELL VOLUME 90.1 fl (80.0-105.0); MEAN CORPUSCULAR HEMOGLOBIN 30.1 pg (25.0-35.0); MEAN CORPUSCULAR HGB CONC 33.4 g/dl (31.0-37.0); MEAN PLATELET VOLUME 8.1 fl (7.0-11.0); MONO # 0.5 (0.1-0.6); RBC 3.42 10^6/uL (3.5-6.1); RED CELL DISTRIBUTION WIDTH 13.2 % (11.5-14.5); WHITE BLOOD COUNT 5.4 10^3/ul (4.5-11.0)
[2017-05-31 08:19] LABS: BLOOD UREA NITROGEN 18 mg/dL (7-21); CALCIUM 10.2 mg/dL (8.4-10.5); GFR AFRICAN-AMERICAN 48; GFR NON-AFRICAN AMERICAN 39
[2017-05-31 08:31] LABS: B-TYPE NATRIURETIC PEPTIDE 893 pg/mL (0-450); TROPONIN I < 0.01 ng/mL
--- NOTE | 2017-05-31 09:15 | RAD ---
HISTORY: sob r/o chf COMPARISON: No prior. FINDINGS: LUNGS: No active pulmonary disease. PLEURA: No significant pleural effusion identified, no pneumothorax apparent. CARDIOVASCULAR: Mild cardiomegaly OSSEOUS STRUCTURES: No significant abnormalities. VISUALIZED UPPER ABDOMEN: Normal. OTHER FINDINGS: None. IMPRESSION: No active disease.
[2017-05-31] MEDS: Multivitamin Therapeutic Tab PO SCH (12:59)
[2017-05-31] MEDS: TRADJENTA 5 MG PO SCH (14:16)
[2017-05-31] MEDS: Insulin Reg-LOW-Coverage SC SCH ×2 (16:15→21:30)
--- NOTE | 2017-05-31 17:24 | CP.PCM.HP ---
History of Present Illness - History of Present Illness History of Present Illness: (covering for Dr. Richards) 82 year old female with history of hypertension, coronary artery disease s/p angioplasty in February 2017, diabetes, chronic diastolic heart failure and hyperlipidemia was sent to the Emergency Room by Dr. Nash, her gear shaper set up operator for shortness of breath. Patient also has swelling of her lower extremities. She denies chest pain. Present on Admission - Present on Admission Any Indicators Present on Admission: No History of DVT/PE: No History of Uncontrolled Diabetes: No Urinary Catheter: No Decubitus Ulcer Present: No Review of Systems - Constitutional Constitutional: absent: Chills, Fever - Cardiovascular Cardiovascular: Dyspnea, Leg Edema. absent: Chest Pain - Gastrointestinal Gastrointestinal: absent: Abdominal Pain, Nausea, Vomiting Past Patient History - Infectious Disease Hx of Infectious Diseases: None - Tetanus Immunizations Tetanus Immunization: Unknown - Past Social History Smoking Status: Never Smoked - CARDIAC Hx Cardiac Disorders: Yes Hx Congestive Heart Failure: Yes Hx Hypertension: Yes Hx Peripheral Edema: Yes - NEUROLOGICAL Hx Migraine: Yes - HEENT Hx HEENT Problems: Yes (eyeglasses) - RENAL Hx Renal Failure: Yes (renal disorder) - ENDOCRINE/METABOLIC Hx Diabetes Mellitus Type 2: Yes - MUSCULOSKELETAL/RHEUMATOLOGICAL Hx Arthritis: Yes Hx Falls: No Hx Unsteady Gait: Yes (uses a cane) - PSYCHIATRIC Hx Substance Use: No - SURGICAL HISTORY Hx Cardiac Catheterization: Yes Hx Coronary Stent: Yes (x2) - ANESTHESIA Hx Anesthesia Reactions: No Hx Malignant Hyperthermia: No Meds Allergies/Adverse Reactions: Allergies Allergy/AdvReac Type Severity Reaction Status Date / Time No Known Allergies Allergy Verified 02/28/17 23:48 Physical Exam - Constitutional Appears: No Acute Distress - Head Exam Head Exam: ATRAUMATIC, NORMOCEPHALIC - Respiratory Exam Respiratory Exam: Rales, NORMAL BREATHING PATTERN - Cardiovascular Exam Cardiovascular Exam: +S1, +S2 - GI/Abdominal Exam GI & Abdominal Exam: Normal Bowel Sounds, Soft. absent: Tenderness - Extremities Exam Extremities exam: Positive for: pedal edema - Neurological Exam Neurological exam: Alert Results - Vital Signs Recent Vital Signs: Last Vital Signs Temp 98 F 05/31/17 12:00 Pulse 77 05/31/17 14:00 Resp 20 05/31/17 12:00 BP 130/42 L 05/31/17 13:00 Pulse Ox 98 05/31/17 12:00 - Labs Result Diagrams: 05/31/17 08:00 05/31/17 08:00 Labs: Laboratory Results - last 24 hr 05/31/17 05/31/17 05/31/17 10:03 12:09 15:50 POC Glucose (mg/dL) 136 H 273 H 127 H Assessment & Plan - Assessment and Plan (Free Text) Assessment: Acute on chronic diastolic heart failure CAD s/p stents HTN HLP DMII CKD Anemia Plan: Patient with shortness of breath, lower extremity edema and rales heard on exam. Patient is clinically in acute heart failure. Dr. Nash, her gear shaper set up operator, has been consulted and she was started on IV Lasix twice a day. continue ASA, Plavix, Lopressor, Norvasc, Hydralazine, Imdur and Lipitor. continue Metformin, Amaryl for diabetes. Will order accuchecks and sliding scale coverage as needed. Patient's hemoglobin is 10.3 which appears to be stable from previous discharge.
--- NOTE | 2017-05-31 21:00 | CARD ---
APPROVED REPORT EKG Measurement Heart [id number] <Conclusion> Normal sinus rhythm Normal ECG
[2017-06-01] MEDS: Pantoprazole 40 mg EC Tab PO SCH (05:11)
[2017-06-01 06:50] LABS: BASO # 0.02 K/mm3 (0.0-2.0); BASO % 0.3 % (0.0-3.0); EOS # 0.2 (0.0-0.7); EOS % 2.8 % (1.5-5.0); GRAN # 4.08 (1.4-6.5); GRAN % 66.8 % (50.0-68.0); HEMOGLOBIN 10.7 g/dL (12.0-16.0); LYMPH # 1.3 (1.2-3.4); LYMPH % 21.8 % (22.0-35.0); MEAN CELL VOLUME 89.1 fl (80.0-105.0); MEAN CORPUSCULAR HEMOGLOBIN 29.2 pg (25.0-35.0); MEAN CORPUSCULAR HGB CONC 32.8 g/dl (31.0-37.0); MONO # 0.5 (0.1-0.6); MONO % 8.3 % (1.0-6.0); RBC 3.66 10^6/uL (3.5-6.1); RED CELL DISTRIBUTION WIDTH 13.2 % (11.5-14.5); WHITE BLOOD COUNT 6.1 10^3/ul (4.5-11.0)
[2017-06-01 07:20] LABS: ALB/GLOB RATIO 1.2 (1.1-1.8); CALCIUM 10.8 mg/dL (8.4-10.5)
[2017-06-01] MEDS: Insulin Reg-LOW-Coverage SC SCH ×4 (07:56→21:33)
--- NOTE | 2017-06-01 08:22 | CP.PCM.PN ---
Subjective - Date & Time of Evaluation Date of Evaluation: 06/01/17 Time of Evaluation: 08:00 - Subjective Subjective: (covering for Dr. Richards) Patient is seen this morning. She is sitting up in the chair. Objective - Vital Signs/Intake and Output Vital Signs (last 24 hours): Temp Pulse Resp BP Pulse Ox 98.2 F 66 18 141/52 L 94 L 06/01/17 06:00 06/01/17 06:00 06/01/17 06:00 06/01/17 06:00 06/01/17 06:00 Intake and Output: 06/01/17 06/01/17 06:59 18:59 Intake Total 1200 Output Total 1200 Balance 0 - Medications Medications: Current Medications Amlodipine Besylate (Norvasc) 5 mg PO DAILY [facility] Last Admin: 05/31/17 12:59 Dose: 5 mg Aspirin (Aspirin Chewable) 81 mg PO DAILY [facility] Atorvastatin Calcium (Lipitor) 10 mg PO DIN [facility] Last Admin: 05/31/17 17:50 Dose: 10 mg Clopidogrel Bisulfate (Plavix) 75 mg PO DAILY [facility] Last Admin: 05/31/17 12:59 Dose: 75 mg Furosemide (Lasix) 40 mg IVP Q12 [facility] Last Admin: 05/31/17 21:44 Dose: 40 mg Glimepiride (Amaryl) 4 mg PO DAILY [facility] Home Med (Home Med) 1 unit PO RENY [facility] Home Med (Home Med) 1 unit PO DAILY [facility] Last Admin: 05/31/17 14:16 Dose: Not Given Home Med (Home Med) 1 unit PO RENY [facility] Hydralazine HCl (Apresoline) 100 mg PO BID [facility] Last Admin: 05/31/17 17:50 Dose: 100 mg Insulin Human Regular (Humulin R Low) 0 units SC [facility] PRN Reason: Protocol Last Admin: 06/01/17 07:56 Dose: Not Given Isosorbide Mononitrate (Imdur) 60 mg PO DAILY [facility] Last Admin: 05/31/17 12:59 Dose: 60 mg Metformin HCl (Glucophage) 500 mg PO BID [facility] Last Admin: 05/31/17 17:51 Dose: 500 mg Metoprolol Tartrate (Lopressor) 50 mg PO BID [facility] Last Admin: 05/31/17 17:51 Dose: 50 mg Multivitamins (Thera Tab) 1 tab PO DAILY [facility] Last Admin: 05/31/17 12:59 Dose: 1 tab Pantoprazole Sodium (Protonix Ec Tab) 40 mg PO 0600 [facility] Last Admin: 06/01/17 05:11 Dose: 40 mg - Labs Labs: 06/01/17 05:30 06/01/17 05:30 - Constitutional Appears: No Acute Distress - Head Exam Head Exam: ATRAUMATIC, NORMOCEPHALIC - Respiratory Exam Respiratory Exam: Rhonchi, NORMAL BREATHING PATTERN - Cardiovascular Exam Cardiovascular Exam: +S1, +S2 - GI/Abdominal Exam GI & Abdominal Exam: Soft, Normal Bowel Sounds. absent: Tenderness - Neurological Exam Neurological Exam: Alert, Awake Assessment and Plan - Assessment and Plan (Free Text) Assessment: Acute on chronic diastolic heart failure CAD s/p stents HTN HLP CKD Diabetes Hypokalemia Plan: Patient is feeling better. Potassium level is low. Will replace potassium. BUN and creatinine rising. Most likely due to Lasix. Patient has baseline chronic kidney disease with creatinine having been up to 2.6 at [address] point[address] Will consult Dr. Blanchard, tower excavator operator, who has seen patient on previous admission.
[2017-06-01] MEDS ORDERED: Potassium Chloride 20 mEq ER Tab PO ONE (08:24)
[2017-06-01] MEDS: Multivitamin Therapeutic Tab PO SCH (09:21)
[2017-06-01] MEDS: TRADJENTA 5 MG PO SCH (09:46)
[2017-06-01] MEDS ORDERED: Home Med 1 UNIT PO SCH ×2 (10:00)
[2017-06-01] MEDS ORDERED: ALENDRONATE SODIUM 70 MG PO SCH (10:00)
--- NOTE | 2017-06-01 15:11 | CP.PCM.CON ---
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 Hypertension control with meds as ordered. Patient not on ACEI/ARB due to ANTOINETTE, work up for secondary HTN neg last admission Monitor Input/Output, daily weights and renal function with basic metabolic panel supplement electrolytes as needed will start iron supplements. on MVI due to reduced GFR and hypercalcemia, hold metformin, Ca/Vit D supplements and bisphosphonates for now diuretics as per cardiology check Vit D, PTH, SPEP/DENIZ and serum FLC assay, iron Sat and Ferritin Dose meds/antibiotics for improved GFR. Avoid fleets enema/magnesium based laxatives. Avoid nephrotoxins/NSAIDs/ iodinated contrast (unless needed emergently) Glycemic control Further work up/management as per primary team Thanks for allowing me to participate in care of your patient. Will follow patient with you. Please call if any Qs. d/w team and son bedside Dr Evaristo Blanchard Office: [phone] Chief Complaint; dizziness reason for consult ANTOINETTE HPI: Pt is a 82 F with long standing hx of diabetes Mellitus, hypertension , and also hyperlipidemia, CAD s/p stent, aware about CKD for last 1 year presented with complaints of SOB and leg swelling and pulmonary congestion which was managed with IV lasix. Renal consult for ANTOINETTE management Denies OTC/herbal meds or NSAIDs no recent iodinated contrast exposure. she feels better except c/o dizziness ROS: used [employer] for persian interpretation she feels better. denies SOB. says leg swelling resolved. no urine complaints. want to go home all other next except as mentioned in HPI Physical Examination: General Appearance: Comfortable, in no acute respiratory distress, co-operative . Vitals reviewed and noted as below Head; Atraumatic, normocephalic ENT: no ulcers no thrush. Tongue is midline. Oropharynx: no rash or ulcers. EYES: Pupils are equal, round and reactive to light accommodation. Eye muscles and extraocular movement intact. Sclera is anicteric. Neck; supple no lymphadenopathy, no thyromegaly or bruit Lungs: normal respiratory rate/effort. Breath sounds bilateral equal and clear Heart: Normal rate. s1s2 normal. No rub or gallop. Extremities: no edema. No varicose veins. some non pitting puffing around ankle noted Neurological: Patient is alert, awake and oriented to person, place and time. No focal deficit. Strength bilateral appropriate and equal Skin: Warm and dry. Normal turgor. No rash. Palpitation: Normal elasticity for age Abdomen: Abdomen is soft. Bowel sounds +. There is no abdominal tenderness, no guarding/rigidity no organomegaly Psych: normal insight and normal affect/mood MSK: no joint tenderness or swelling. Digits and nails normal, no deformity : kidney or bladder not palpable Labs/imaging reviewed. Past medical history, past surgical history, family history, social history, allergy reviewed and noted as below Family hx: no hx of CKD. Rest non-contributory Work up: renal sono: rt renal 10 cm cyst and b/l kidneys echogenic Vit D 37 PTH 136 aldosterone 2 renin 0.6 metanephrine WNL. renal artery doppler neg Past Patient History - Infectious Disease Hx of Infectious Diseases: None - Tetanus Immunizations Tetanus Immunization: Unknown - Past Social History Smoking Status: Never Smoked - CARDIAC Hx Cardiac Disorders: Yes Hx Congestive Heart Failure: Yes Hx Hypertension: Yes Hx Peripheral Edema: Yes - NEUROLOGICAL Hx Migraine: Yes - HEENT Hx HEENT Problems: Yes (eyeglasses) - RENAL Hx Renal Failure: Yes (renal disorder) - ENDOCRINE/METABOLIC Hx Diabetes Mellitus Type 2: Yes - MUSCULOSKELETAL/RHEUMATOLOGICAL Hx Arthritis: Yes Hx Falls: No Hx Unsteady Gait: Yes (uses a cane) - PSYCHIATRIC Hx Substance Use: No - SURGICAL HISTORY Hx Cardiac Catheterization: Yes Hx Coronary Stent: Yes (x2) - ANESTHESIA Hx Anesthesia Reactions: No Hx Malignant Hyperthermia: No Meds Allergies/Adverse Reactions: Allergies Allergy/AdvReac Type Severity Reaction Status Date / Time No Known Allergies Allergy Verified 02/28/17 23:48 - Medications Medications: Current Medications Amlodipine Besylate (Norvasc) 5 mg PO DAILY [facility] Last Admin: 06/01/17 09:22 Dose: 5 mg Aspirin (Aspirin Chewable) 81 mg PO DAILY [facility] Last Admin: 06/01/17 09:20 Dose: 81 mg Atorvastatin Calcium (Lipitor) 10 mg PO DIN [facility] Last Admin: 05/31/17 17:50 Dose: 10 mg Clopidogrel Bisulfate (Plavix) 75 mg PO DAILY [facility] Last Admin: 06/01/17 09:21 Dose: 75 mg Ferrous Gluconate (Fergon) 324 mg PO TID [facility] Furosemide (Lasix) 40 mg IVP Q12 [facility] Last Admin: 06/01/17 09:21 Dose: 40 mg Glimepiride (Amaryl) 4 mg PO DAILY [facility] Last Admin: 06/01/17 09:19 Dose: 4 mg Home Med (Home Med) 1 unit PO DAILY [facility] Last Admin: 06/01/17 09:46 Dose: Not Given Hydralazine HCl (Apresoline) 100 mg PO BID [facility] Last Admin: 06/01/17 09:19 Dose: 100 mg Insulin Human Regular (Humulin R Low) 0 units SC [facility] PRN Reason: Protocol Last Admin: 06/01/17 11:45 Dose: Not Given Isosorbide Mononitrate (Imdur) 60 mg PO DAILY [facility] Last Admin: 06/01/17 09:20 Dose: 60 mg Metoprolol Tartrate (Lopressor) 50 mg PO BID [facility] Last Admin: 06/01/17 09:22 Dose: 50 mg Multivitamins (Thera Tab) 1 tab PO DAILY [facility] Last Admin: 06/01/17 09:21 Dose: 1 tab Pantoprazole Sodium (Protonix Ec Tab) 40 mg PO 0600 [facility] Last Admin: 06/01/17 05:11 Dose: 40 mg Results - Vital Signs Recent Vital Signs: Last Vital Signs Temp 97 F L 06/01/17 12:00 Pulse 74 06/01/17 13:59 Resp 16 06/01/17 12:17 BP 110/59 L 06/01/17 13:59 Pulse Ox 97 06/01/17 12:17 - Labs Result Diagrams: 06/01/17 05:30 06/01/17 11:20
--- NOTE | 2017-06-01 16:48 | PN ---
DATE: 06/01/2017 CARDIOLOGY FOLLOWUP SUBJECTIVE: The patient is in a chair without elevating her legs. She now has 1+ swelling of the lower extremities. PHYSICAL EXAMINATION: VITAL SIGNS: Blood pressure is 110/60 with the heart rates in the 70s. NECK: Negative JVD. LUNGS: Without rales. HEART: Reveals S1, S2. EXTREMITIES: 1+ edema. LABORATORY DATA: Hemoglobin is 10.7. BUN and creatinine were 31 and 1.9. IMPRESSION: 1. Prerenal azotemia. 2. Pedal edema. 3. Stable angina. 4. History of percutaneous transluminal coronary angioplasty and stent in the past. PLAN: I have discussed with the patient about the need to keep her legs elevated. We will add SHANITA stockings to her regimen today. Jaylon Nash MD
[2017-06-01 17:06] LABS: FERRITIN 19.9 ng/mL
[2017-06-01 17:19] LABS: PH,URINE 5.5 (4.7-8.0); URINE BILIRUBIN NEGATIVE (NEGATIVE); URINE BLOOD NEGATIVE (NEGATIVE); URINE GLUCOSE (UA) NEGATIVE (NEGATIVE); URINE LEUKOCYTE ESTERASE MODERATE Leu/uL (NEGATIVE); URINE PROTEIN TRACE mg/dL (<30 mg/dL); URINE UROBILINOGEN 0.2 E.U./dL (<1 E.U./dL)
[2017-06-01 17:23] LABS: URINE APPEARANCE CLEAR (CLEAR); URINE COLOR YELLOW (YELLOW)
[2017-06-01 17:37] LABS: URINE BACTERIA MANY (NEG); URINE HYALINE CAST 0 - 2 /hpf; URINE RBC 0 - 2 /hpf (0-2); URINE WBC 15 - 20 /hpf (0-6)
[2017-06-02] MEDS: Pantoprazole 40 mg EC Tab PO SCH (05:23)
[2017-06-02 06:45] LABS: BASO # 0.03 K/mm3 (0.0-2.0); BASO % 0.5 % (0.0-3.0); EOS # 0.1 (0.0-0.7); EOS % 1.5 % (1.5-5.0); GRAN # 3.97 (1.4-6.5); GRAN % 60.5 % (50.0-68.0); HEMOGLOBIN 10.4 g/dL (12.0-16.0); LYMPH # 1.7 (1.2-3.4); LYMPH % 26.2 % (22.0-35.0); MEAN CELL VOLUME 88.6 fl (80.0-105.0); MEAN CORPUSCULAR HEMOGLOBIN 29.6 pg (25.0-35.0); MEAN CORPUSCULAR HGB CONC 33.4 g/dl (31.0-37.0); MEAN PLATELET VOLUME 7.9 fl (7.0-11.0); MONO # 0.7 (0.1-0.6); MONO % 11.3 % (1.0-6.0); RBC 3.51 10^6/uL (3.5-6.1); RED CELL DISTRIBUTION WIDTH 13.3 % (11.5-14.5); WHITE BLOOD COUNT 6.6 10^3/ul (4.5-11.0)
[2017-06-02 07:23] LABS: ALB/GLOB RATIO 1.2 (1.1-1.8); ALBUMIN 3.9 g/dL (3.0-4.8); CALCIUM 10.2 mg/dL (8.4-10.5)
--- NOTE | 2017-06-02 07:51 | PQF ANEMIA ---
This form is a permanent part of the medical record Clarification of your documentation is requested to better reflect the severity of illness and intensity of treatment of your patient. Indicators present Pt presents w/ anemia, H&H- 10.3/ 30.8, hx Stage 3 CKD. Please specify if there is correlation between anemia & CKD for coding accuracy [x] Anemia [] Drop in H&H from []___ to []___ [] Hypotension [] GI Bleed [] Transfusion(s) [] Acute bleed other sites [] Tachycardia [] Surgical Procedure Blood Loss (expected not a complication) Other:[] Location in the medical record that reflects the above clinical findings: [x] Admission labs & Renal consult by Dr Blanchard Treatment Provided: [] PHYSICIAN'S RESPONSE Based on your medical judgment of the clinical indicators outlined above, are you treating this patient for a known or suspected: [] Acute blood loss anemia [] Chronic blood loss anemia [] Acute on Chronic blood loss anemia [] Anemia due to malignancy [] Anemia due to chemotherapy or radiation therapy [x] Anemia of Chronic Disease, please specify: []__anemia of chronic kidney disease____ [] Other, please indicate type of anemia []____ [] If Unable to Determine, please check the box, sign and date. Present On Admission (POA) Indicator: [x] Present at the time of admission [] Not present at the time of admission [] Clinically Undetermined In responding to this query, please exercise your independent professional judgment. The fact that a question is asked does not imply that any particular answer is desired or expected. Thank you for your clarification on this documentation. If you have any questions please call:[ ] [phone] * Thank you, [ ] Karina Anguiano RN longshore equipment operator FLAKO
[2017-06-02] MEDS: Insulin Reg-LOW-Coverage SC SCH ×4 (07:56→22:00)
[2017-06-02] MEDS ORDERED: Sodium Chloride 0.45% 1,000 ML IV SCH ×2 (10:00→10:54)
[2017-06-02] MEDS ORDERED: Sodium Chloride 0.9% 1,000 ML IV SCH (10:00)
[2017-06-02] MEDS: Multivitamin Therapeutic Tab PO SCH (10:16)
[2017-06-02] MEDS: TRADJENTA 5 MG PO SCH (10:18)
--- NOTE | 2017-06-02 14:13 | PN ---
DATE: 06/02/2017 LOCATION: The patient is in the [facility] in [place], room 373, bed 1. SUBJECTIVE: The patient was admitted with congestive heart failure. Her page makeup system operator is Dr. Jaylon Nash. She had recommended admission to the patient and she came to the emergency room and evaluated in the emergency room by the emergency room physician and she was deemed to have congestive heart failure with exacerbation of symptoms associated with CHF, shortness of breath on exertion, shortness of breath at rest. PAST MEDICAL HISTORY: Patient has history of coronary artery disease, hypertension, diabetes mellitus and gastritis. Patient has had previous cardiac intervention by Dr. Jaylon Morejon. PHYSICAL EXAMINATION: VITAL SIGNS: This morning, the patient's pulse is 61, blood pressure 124/50, patient's respirations are 20, O2 sat 95% on room air. Patient's temperature is 98.7. GENERAL: The patient is lying down flat in bed, comfortable. Apparently, she wants to go home. NECK: JVP is flat. Carotid pulses are present. HEART: Normal sinus rhythm. S1 and S2 present. LUNGS: Trachea is central. Breath sounds are vesicular. Bilateral crepitations are heard in both lower part of lungs. ABDOMEN: Soft. Liver and spleen not palpable. CENTRAL NERVOUS SYSTEM: The patient is conscious, rational, and oriented. Able to move all four limbs. Patient is able to ambulate. EXTREMITIES: Patient's peripheral edema is noted. There is a sign of congestive heart failure. LABORATORY DATA: Hemoglobin is 10.4. Patient has chemistry findings shows the creatinine is 2.5, BUN is 49. These results are secondary to renal insufficiency associated with congestive heart failure. The patient's sodium is 134, blood sugar is 58, calcium is 10.2. Patient does not have any other signs of secondary hyperparathyroidism at this time, but Nephrology had seen the patient and may recommend . MEDICATIONS: Patient's list of medications consist of Amaryl 4 mg daily, patient is on Apresoline 50 mg b.i.d., aspirin 81 mg daily, ferrous gluconate, patient was given 3 times a day for iron deficiency anemia. Patient is also covered by insulin coverage for diabetes, Lasix 40 mg every 12 hours. Patient is on Lipitor 10 mg daily, metoprolol 50 mg b.i.d., amlodipine 5 mg daily, Plavix 75 mg daily, pantoprazole 40 mg daily, multivitamin. IMPRESSION AND PLAN: Patient's diet is heart-healthy diet, diabetic. Patient's overall condition is clinically stable and improving. Patient will be seen by the page makeup system operator and on recommendation, the patient can be discharged for outpatient care. Corona Vickers MD
--- NOTE | 2017-06-02 14:14 | PN ---
DATE: 06/02/2017 CARDIOLOGY FOLLOWUP SUBJECTIVE: The patient has edema, it is better. PHYSICAL EXAMINATION VITAL SIGNS: Blood pressure is 124/50, heart rate is in the 60s. NECK: Negative JVD. LUNGS: Without rales. HEART: Reveals S1,S2. EXTREMITIES: 1+ edema. LABORATORY DATA: Hemoglobin is 10.4. Chemistries, the creatinine has risen to 2.5 from 1.3 on admission. IMPRESSION 1. Prerenal azotemia. 2. Pedal edema, which is better. 3. History of percutaneous transluminal coronary angioplasty and stent. 4. Stable angina. 5. History of coronary artery disease. PLAN: Given these findings, we will discontinue the Lasix. We will need to keep the patient on for following of her creatinine. SHANITA stockings have been ordered. Jaylon Nash MD
--- NOTE | 2017-06-02 15:12 | CP.PCM.PN ---
Subjective - Date & Time of Evaluation Date of Evaluation: 06/02/17 Time of Evaluation: 15:11 - Subjective Subjective: Nephrology Consultation Note: Assessment: Stable CHF exacerbation Acute Kidney Injury (N17.9) likely hemodynamic Diabetic chronic Kidney Disease (E11.22) Hypertensive Chronic Kidney Disease (I12.9) Chronic Kidney Disease (N18.3) Stage 3 without proteinuria likely due to HTN Anemia (D64.9), HTN (I12.9) DM, CAD s/p stent, Hyperlipidemia, overweight Rt renal cyst, hypokalemia Hypercalcemia Plan No acute need for renal replacement therapy at this time. Hypertension control with meds as ordered. Patient not on ACEI/ARB due to ANTOINETTE, work up for secondary HTN neg last admission Monitor Input/Output, daily weights and renal function with basic metabolic panel supplement electrolytes as needed will start iron supplements. on MVI due to reduced GFR and hypercalcemia, hold metformin, Ca/Vit D supplements and bisphosphonates for now diuretics held due to rise in serum creatinine, agree with cardiology sent Vit D, PTH, SPEP/DENIZ and serum FLC assay, iron Sat and Ferritin Dose meds/antibiotics for improved GFR. Avoid fleets enema/magnesium based laxatives. Avoid nephrotoxins/NSAIDs/ iodinated contrast (unless needed emergently) Glycemic control Further work up/management as per primary team Thanks for allowing me to participate in care of your patient. Will follow patient with you. Please call if any Qs. Dr Evaristo Blanchard Office: [phone] reason for consult ANTOINETTE HPI: Pt is a 82 F with long standing hx of diabetes Mellitus, hypertension , and also hyperlipidemia, CAD s/p stent, aware about CKD for last 1 year presented with complaints of SOB and leg swelling and pulmonary congestion which was managed with IV lasix. Renal consult for ANTOINETTE management Denies OTC/herbal meds or NSAIDs no recent iodinated contrast exposure. she feels better except c/o dizziness ROS: used [employer] for malay interpretation she feels better. denies SOB. says leg swelling resolved. no urine complaints. want to go home all other next except as mentioned in HPI Physical Examination: General Appearance: Comfortable, in no acute respiratory distress, co-operative . Vitals reviewed and noted as below Head; Atraumatic, normocephalic ENT: no ulcers no thrush. Tongue is midline. Oropharynx: no rash or ulcers. EYES: Pupils are equal, round and reactive to light accommodation. Eye muscles and extraocular movement intact. Sclera is anicteric. Neck; supple no lymphadenopathy, no thyromegaly or bruit Lungs: normal respiratory rate/effort. Breath sounds bilateral equal and clear Heart: Normal rate. s1s2 normal. No rub or gallop. Extremities: no edema. No varicose veins. some non pitting puffing around ankle/ lower leg noted Neurological: Patient is alert, awake and oriented to person, place and time. No focal deficit. Strength bilateral appropriate and equal Skin: Warm and dry. Normal turgor. No rash. Palpitation: Normal elasticity for age Abdomen: Abdomen is soft. Bowel sounds +. There is no abdominal tenderness, no guarding/rigidity no organomegaly Psych: normal insight and normal affect/mood MSK: no joint tenderness or swelling. Digits and nails normal, no deformity : kidney or bladder not palpable Labs/imaging reviewed. Past medical history, past surgical history, family history, social history, allergy reviewed and noted as below Family hx: no hx of CKD. Rest non-contributory Work up: renal sono: rt renal 10 cm cyst and b/l kidneys echogenic Vit D 37 PTH 136 aldosterone 2 renin 0.6 metanephrine WNL. renal artery doppler neg Objective - Vital Signs/Intake and Output Vital Signs (last 24 hours): Temp Pulse Resp BP Pulse Ox 97.1 F L 75 20 126/76 95 06/02/17 12:00 06/02/17 12:00 06/02/17 12:00 06/02/17 12:00 06/02/17 05:59 Intake and Output: 06/02/17 06/02/17 06:59 18:59 Intake Total 660 300 Balance 660 300 - Medications Medications: Current Medications Amlodipine Besylate (Norvasc) 5 mg PO DAILY [facility] Last Admin: 06/02/17 10:17 Dose: 5 mg Aspirin (Aspirin Chewable) 81 mg PO DAILY [facility] Last Admin: 06/02/17 10:17 Dose: 81 mg Atorvastatin Calcium (Lipitor) 10 mg PO DIN [facility] Last Admin: 06/01/17 17:21 Dose: 10 mg Ferrous Gluconate (Fergon) 324 mg PO TID [facility] Last Admin: 06/02/17 10:18 Dose: 324 mg Glimepiride (Amaryl) 4 mg PO DAILY [facility] Last Admin: 06/02/17 10:17 Dose: Not Given Home Med (Home Med) 1 unit PO DAILY [facility] Last Admin: 06/02/17 10:18 Dose: Not Given Hydralazine HCl (Apresoline) 50 mg PO BID [facility] Last Admin: 06/02/17 10:18 Dose: 50 mg Ceftriaxone Sodium (Rocephin 1 Gram Ivpb) 1 gm in 100 mls @ 100 mls/hr IVPB DAILY [facility] PRN Reason: Protocol Sodium Chloride (Sodium Chloride 0.45%) 1,000 mls @ 30 mls/hr IV .Q24H [facility] Stop: 06/02/17 20:00 Last Admin: 06/02/17 11:16 Dose: 30 mls/hr Insulin Human Regular (Humulin R Low) 0 units SC [facility] PRN Reason: Protocol Last Admin: 06/02/17 07:56 Dose: Not Given Metoprolol Tartrate (Lopressor) 50 mg PO BID [facility] Last Admin: 06/02/17 10:17 Dose: 50 mg Multivitamins (Thera Tab) 1 tab PO DAILY [facility] Last Admin: 06/02/17 10:16 Dose: 1 tab Pantoprazole Sodium (Protonix Ec Tab) 40 mg PO 0600 [facility] Last Admin: 06/02/17 05:23 Dose: 40 mg - Labs Labs: 06/02/17 06:15 06/02/17 06:15
[2017-06-02] MEDS: cefTRIAXone 1 gm 1 GM/100 ML BAG IVPB SCH (16:49)
--- NOTE | 2017-06-02 16:51 | CARD ---
APPROVED REPORT EXAM: Two-dimensional and M-mode echocardiogram with Doppler and color Doppler. INDICATION Pulmonary Hypertention 2D DIMENSIONS Left Atrium (2D)4.0 (1.6-4.0cm)IVSd1.2 (0.7-1.1cm) LVDd4.0 (3.9-5.9cm)PWd1.2 (0.7-1.1cm) LVDs2.8 (2.5-4.0cm)FS (%) 29.9 % LVEF (%)57.7 (>50%) M-Mode DIMENSIONS Aortic Root3.00 (2.2-3.7cm)Aortic Cusp Exc.1.50 (1.5-2.0cm) Aortic Valve AoV Peak Uhtyvsfe298.0cm/sAoV VTI34.3cmAO Peak GR.14mmHg LVOT Peak Caqitlgx244.0cm/sLVOT VTI22.20cmAO Mean GR.5mmHg Mitral Valve MV E Kruvtdpb35.0cm/sMV A Rroicmwd571.0cm/sE/A ratio0.6 TDI Lateral E' Peak V4.87cm/sMedial E' Peak V5.36cm/sE/Lateral E'15.2 E/Medial E'13.8 Pulmonary Valve PV Peak Xqfwkgeg42.0cm/sPV Peak Grad.2mmHg Tricuspid Valve TR Peak Mshphmbm445gn/sRAP [id number] Peak Gr.15mmHg [id number] LEFT VENTRICLE The left ventricle is normal size. There is normal left ventricular wall thickness. The left ventricular function is normal. The left ventricular ejection fraction is within the normal range. There is normal LV segmental wall motion. Transmitral Doppler flow pattern is Grade I-abnormal relaxation pattern. RIGHT VENTRICLE The right ventricle is normal size. There is normal right ventricular wall thickness. The right ventricular systolic function is normal. ATRIA The left atrium is borderline dilated. The right atrium size is normal. AORTIC VALVE The aortic valve is mildly sclerotic. No aortic regurgitation is present. MITRAL VALVE The mitral valve is mildly thickened. Mitral regurgitation is trace. TRICUSPID VALVE There is no pulmonary hypertension. GREAT VESSELS The aortic root is normal in size. PERICARDIAL EFFUSION There is a small loculated anterior pericardial effusion. <Conclusion> The left ventricle is normal size. There is normal left ventricular wall thickness. The left ventricular function is normal. The left ventricular ejection fraction is within the normal range. There is normal LV segmental wall motion. Transmitral Doppler flow pattern is Grade I-abnormal relaxation pattern. There is no pulmonary hypertension. There is a small loculated anterior pericardial effusion.
[2017-06-03 06:27] VITALS: O2SAT 92
[2017-06-03] MEDS: Pantoprazole 40 mg EC Tab PO SCH (07:03)
[2017-06-03 07:37] LABS: BASO # 0.03 K/mm3 (0.0-2.0); BASO % 0.5 % (0.0-3.0); EOS # 0.2 (0.0-0.7); EOS % 2.4 % (1.5-5.0); GRAN # 4.19 (1.4-6.5); GRAN % 68.1 % (50.0-68.0); HEMOGLOBIN 10.8 g/dL (12.0-16.0); LYMPH # 1.1 (1.2-3.4); LYMPH % 18.4 % (22.0-35.0); MEAN CELL VOLUME 88.5 fl (80.0-105.0); MEAN CORPUSCULAR HEMOGLOBIN 29.7 pg (25.0-35.0); MEAN CORPUSCULAR HGB CONC 33.5 g/dl (31.0-37.0); MEAN PLATELET VOLUME 7.9 fl (7.0-11.0); MONO # 0.7 (0.1-0.6); MONO % 10.6 % (1.0-6.0); RBC 3.64 10^6/uL (3.5-6.1); RED CELL DISTRIBUTION WIDTH 13.1 % (11.5-14.5); WHITE BLOOD COUNT 6.2 10^3/ul (4.5-11.0)
[2017-06-03 07:52] LABS: ALB/GLOB RATIO 1.3 (1.1-1.8); CALCIUM 10.2 mg/dL (8.4-10.5)
[2017-06-03] MEDS: Insulin Reg-LOW-Coverage SC SCH ×2 (08:03→12:25)
[2017-06-03] MEDS: cefTRIAXone 1 gm 1 GM/100 ML BAG IVPB SCH (09:56)
[2017-06-03] MEDS: Multivitamin Therapeutic Tab PO SCH (09:56)
[2017-06-03] MEDS: TRADJENTA 5 MG PO SCH (10:02)
[2017-06-03 13:18] VITALS: BP 113/59; PULSE 66; RESP 18; TEMP 98.1
--- NOTE | 2017-06-03 13:55 | PN ---
DATE: PROGRESS NOTE AND DISCHARGE NOTE LOCATION: The patient is in the Transitional Care Unit, room 373, bed 1. SUBJECTIVE: The patient was admitted with congestive heart failure, shortness of breath, associated with acute symptoms. The patient had no chest pain at that time. The patient is seen today. She is comfortable. PHYSICAL EXAMINATION: VITAL SIGNS: The patient's pulse is 70, blood pressure 120/70, respirations are 19, O2 sat is 92% on room air. HEENT: Head is normocephalic. NECK: Thyroid is not enlarged. JVP is flat. Carotid pulses are present. HEART: Normal sinus rhythm. S1, S2 present. LUNGS: Trachea central. Breath sounds are vesicular. Crepitations heard bilaterally. These might be chronic crepitations from chronic congestive heart failure. EXTREMITIES: The patient's legs show minimal edema. Congestive failure is much improved. LABORATORY DATA: Hemoglobin 10.8. The patient's chemistry: The sodium is 133, blood sugar is 126, the patient's calcium is 10.2, the patient's BUN is 48, creatinine if 1.8. The patient has renal insufficiency associated with congestive heart failure. MEDICATIONS: The patient was on metformin at home for diabetes. This medication was discontinued because of the renal insufficiency. The patient also takes hydralazine 50 mg b.i.d., Amaryl 4 mg daily for diabetes. The patient is on insulin coverage, Lipitor 10 mg, metoprolol 50 mg daily. The patient will be on pantoprazole 40 mg daily, amlodipine 5 mg daily. Rocephin 1 g was given yesterday for urinary tract infection. The patient is given a prescription for urine test to be done in a few days, like next week, on Monday. The patient is also given a prescription for Lasix 40 mg daily that she have in the past, recommended by Dr. Jaylon Nash, business law instructor. Diet is 2 g sodium, heart-healthy diet. Corona Vickers MD
== END 2017-06-03 15:12 | disposition home or self-care (01) | DRG 291 ==
LOC: ED 07:08 → ERH 08:41 → 3RSO 10:29 → OBSVTOIN 06-01 12:44
PROVIDERS: ADMIT Internal Medicine; ATTEND Internal Medicine
DX: I13.0 Hypertensive heart and chronic kidney disease with heart failure and stage 1 through stage 4 chronic kidney disease, or unspecified chronic kidney disease (principal); I50.33 Acute on chronic diastolic (congestive) heart failure; N17.9 Acute kidney failure, unspecified; I25.118 Atherosclerotic heart disease of native coronary artery with other forms of angina pectoris; N18.3 Chronic kidney disease, stage 3 (moderate); E11.22 Type 2 diabetes mellitus with diabetic chronic kidney disease; E66.3 Overweight; E78.5 Hyperlipidemia, unspecified; E83.52 Hypercalcemia; E87.6 Hypokalemia; N28.1 Cyst of kidney, acquired; Z79.02 Long term (current) use of antithrombotics/antiplatelets; Z79.82 Long term (current) use of aspirin; Z95.5 Presence of coronary angioplasty implant and graft; G43.909 Migraine, unspecified, not intractable, without status migrainosus; M19.90 Unspecified osteoarthritis, unspecified site; R40.2412 Glasgow coma scale score 13-15, at arrival to emergency department; R26.81 Unsteadiness on feet; D63.1 Anemia in chronic kidney disease